=== PATIENT | female | born 1955 | race Caucasian/White ===

== ENCOUNTER 2016-12-09 17:09 | Emergency (ER) | payer OTHER ==
[~2016-12-09] VITALS: Wt 82.5 kg
[2016-12-09 20:19] LABS: ADD SCAN DIFF NO
[2016-12-09 20:25] LABS: BASOPHILS % 0.4 % (0.0-2.0); EOSINOPHILS # 0.1 10^3/ul (0.0-0.5); EOSINOPHILS % 2.4 % (0.0-7.0); HEMATOCRIT 28.9 % (37.0-47.0); HEMOGLOBIN 8.9 g/dl (12.0-16.0); LYMPHOCYTES # 1.4 10^3/ul (0.8-2.9); MEAN CORPUSCULAR HEMOGLOBIN 28.1 pg (29.0-33.0); MEAN CORPUSCULAR HGB CONC 30.8 g/dl (32.0-37.0); MEAN CORPUSCULAR VOLUME 91.2 fl (82.0-101.0); MONOCYTE # 0.5 10^3/ul (0.3-0.9); MONOCYTES % 9.9 % (0.0-11.0); NEUTROPHILS % 58.7 % (39.0-77.0); PLATELET COUNT 182 10^3/UL (140-415); RED BLOOD COUNT 3.17 10^6/ul (4.20-5.40); RED CELL DISTRIBUTION WIDTH 17.7 % (11.5-14.5)
[2016-12-09] MEDS ORDERED: KETOROLAC 15 MG INJ IV STA (20:27)
[2016-12-09 20:44] LABS: ALBUMIN 4.1 g/dl (3.3-4.9); ALBUMIN/GLOBULIN RATIO 1.24; BILIRUBIN,INDIRECT 0.1 mg/dl (0-1.1); BILIRUBIN,TOTAL 0.1 mg/dl (0.2-1.3); CALCIUM 9.4 mg/dl (8.4-10.2); CREATININE 1.01 mg/dl (0.44-1.00); POTASSIUM 3.5 mmol/L (3.5-5.1); TOTAL PROTEIN 7.4 g/dl (6.1-8.1)
[2016-12-09 20:49] LABS: ADD UMIC YES; UR ASCORBIC ACID NEGATIVE (NEGATIVE); UR BACTERIA FEW /HPF (NONE SEEN); UR BILIRUBIN (Dip) NEGATIVE (NEGATIVE); UR BLOOD (Dip) 1+ mg/dL (NEGATIVE); UR CLARITY SLIGHTLY CLOUDY (CLEAR); UR COLOR STRAW (YELLOW); UR GLUCOSE (Dip) NEGATIVE (NEGATIVE); UR KETONES (Dip) NEGATIVE (NEGATIVE); UR LEUKOCYTE ESTERASE (Dip) 3+ Leu/ul (NEGATIVE); UR NITRITE (Dip) NEGATIVE (NEGATIVE); UR RBC 6 /HPF (0-5); UR SPECIFIC GRAVITY (Dip) 1.002 (1.003-1.030); UR SQUAMOUS EPITHELIAL CELL FEW /HPF (FEW); UR TOTAL PROTEIN (Dip) NEGATIVE (NEGATIVE); UR UROBILINOGEN (Dip) NEGATIVE (NEGATIVE)
[2016-12-09] MEDS ORDERED: IOHEXOL 300MG/ML 150 ML BTL ONE (21:10)
[2016-12-09] MEDS ORDERED: SOD CHLORIDE 0.9% 100 ML ONE (21:10)
[2016-12-09] MEDS ORDERED: CEFTRIAXONE 1 GM/50 ML (PMX) 50 ML IVPB ONE (22:00)
--- NOTE | 2016-12-09 22:23 | RADRPT ---
PROCEDURE: CT Abdomen and Pelvis without contrast. CLINICAL INDICATION: Flank pain. Ureteral stent evaluation. TECHNIQUE: CT scan of the abdomen and pelvis without contrast was performed on a multidetector hig h-resolution CT scanner. The patient was scanned without intravenous contrast. Coronal and sagittal reformatted images were obtained from the axial source images. Images were reviewed on a high-resol [employer] PACS workstation. The total exam CTDI equals 20.2 mGy and the total exam DLP equals 1218.04 mG y-cm. One or more of the following dose reduction techniques were used: Automated exposure control. Adjustment of the mA and/or kV according to patient size. Use of iterative reconstruction technique. COMPARISON: None FINDINGS: CT abdomen: The lung bases are clear. The heart size is normal, without pericardial thickening or effusion. The liver is normal in size and density. There is approximately 2.2 cm indeterminate hypodense lesi on in the left hepatic lobe. The spleen is normal in size and homogeneous in density. The stomach is partially collapsed, but is grossly unremarkable. The pancreas as visualized is normal. The gal lbladder is unremarkable. There is no evidence for biliary dilatation. The adrenal glands are symme tric and normal. There is an atrophic right kidney. Right-sided nephroureteral stent is in place with proximal pigta il coils in the right UPJ with distal pigtail in the urinary bladder. There is no hydronephrosis. There is mild right perinephric fatty stranding. The left kidney is normal in size with no hydronep hrosis. There is approximately 6 cm exophytic cortical cyst in the mid pole left kidney. There is no urolithiasis. The aorta is of normal caliber. There is no retroperitoneal lymphadenopathy. The randell hepatis thais on is clear. The bowel and mesentery, as visualized, are equally unremarkable. There is a small hia bethany hernia. CT pelvis: The small bowel loops situated within the pelvis are unremarkable. The uterus is absent. The pelvi c sidewalls and inguinal regions are clear. The sigmoid colon and rectum are unremarkable. No mass , lymphadenopathy, or free fluid is seen. No acute inflammation is seen. There is age indeterminat e mild compression fracture of T12. There is no retropulsion. No osteolytic or osteoblastic lesion is detected. IMPRESSION: 1. Right nephroureteral stent with proximal pigtail coils in the right UPJ and distal pigtail in the urinary bladder. No right hydronephrosis. Mild periureteral fatty stranding which could be relate d to existing stent or UTI. 2. Atrophic right kidney. No urolithiasis. 3. Normal size left kidney with no hydronephrosis. Large left renal cyst. 4. Indeterminate approximately 2.2 cm hypodense lesion in the left hepatic lobe. This could represe nt a cyst. Recommend ultrasound for confirmation. 5. Small hiatal hernia. RPTAT: HHO .Matteo Adam MD, Date Time Electronically viewed and signed by .Matteo Adam MD, on 12/09/2016 22:23 .O/
--- NOTE | 2016-12-09 22:33 | ERD ---
ER Documentation Chief Complaint Date/Time DATE: 12/09/16 TIME: 22:29 Chief Complaint lower abd pain, dysuria, states stent kidney needs to be removed HPI This is a 61-year-old female who presents to the emergency room with her sister for evaluation of lower abdominal pain, painful urination, and evaluation of a ureteral stent. According to the patient's sister this patient had a ureteral stent placed 3 weeks ago at a hospital near [place]. This patient has not had removal of the stent and called the urologist to schedule removal of the stent however the urologist was refusing to remove the stent due to insurance reasons. This patient was visiting her sister who lives in [place] and the patient was brought to the ER for evaluation of the stent. The patient denies any fevers or chills. ROS All systems reviewed and are negative except as per history of present illness. Allergies Allergies: Coded Allergies: Penicillins (Verified Allergy, Intermediate, 12/09/16) PMhx/Soc History of Surgery: Yes (bi-lateral mastectomy, hysterectomy, kidney stebnt placement) Hx Miscellaneous Medical Probl: Yes (breast CA, ovarian CA) Hx Substance Use: No Hx Tobacco Use: No Smoking Status: Never smoker Physical Exam Vitals Vital Signs Date Time Temp Pulse Resp B/P Pulse Ox O2 Delivery O2 Flow Rate FiO2 12/09/16 17:26 98.8 95 20 115/62 96 Physical Exam INITIAL VITAL SIGNS: Reviewed by me GENERAL: The patient is well developed and appropriate for usual state of health in no apparent distress, pleasant affect HEENT: Pupils equal, round, and reactive to light. EOMI. There is no scleral icterus. NECK: C-spine is soft and supple, there is no meningismus. There is no cervical lymphadenopathy. LUNGS: Clear to auscultation bilaterally. There are no rales, wheezes or rhonchi. HEART: Regular rate and rhythm, no murmurs, clicks, rubs or gallops. ABDOMEN: Soft, non-tender, non-distended. There are bowel sounds in all four quadrants. No rebound or guarding. EXTREMITIES: There is no peripheral cyanosis or edema. No focal swelling or erythema. NEUROLOGICAL: The patient moves all four extremities with 5/5 strength. Cranial nerves II - XII are intact. Normal gait. Alert and oriented SKIN: There is no apparent rash or petechiae. HEME/LYMPHATIC: There is no evidence of excessive bruising or lymphedema. PSYCHIATRIC: The patient does not appear anxious or depressed. Result Diagram: 12/09/16 2017 12/09/162016 Results 24 hrs Laboratory Tests Test 12/09/16 20:17 White Blood Count 5.010^3/ul Red Blood Count 3.1710^6/ul Hemoglobin 8.9g/dl Hematocrit 28.9% Mean Corpuscular Volume 91.2fl Mean Corpuscular Hemoglobin 28.1pg Mean Corpuscular Hemoglobin Concent 30.8g/dl Red Cell Distribution Width 17.7% Platelet Count 47068^3/UL Mean Platelet Volume 9.0fl Neutrophils % 58.7% Lymphocytes % 28.0% Monocytes % 9.9% Eosinophils % 2.4% Basophils % 0.4% Neutrophils # 3.010^3/ul Lymphocytes # 1.410^3/ul Monocytes # 0.510^3/ul Eosinophils # 0.110^3/ul Basophils # 0.010^3/ul Nucleated Red Blood Cells # 0.010^3/ul Urine Color STRAW Urine Clarity SLIGHTLY CLOUDY Urine pH 6.0 Urine Specific [place] 1.002 Urine Ketones NEGATIVEmg/dL Urine Nitrite NEGATIVEmg/dL Urine Bilirubin NEGATIVEmg/dL Urine Urobilinogen NEGATIVEmg/dL Urine Leukocyte Esterase 3+Milton/ul Urine Microscopic RBC 6/HPF Urine Microscopic WBC 13/HPF Urine Squamous Epithelial Cells FEW/HPF Urine Bacteria FEW/HPF Urine Hemoglobin 1+mg/dL Urine Glucose NEGATIVEmg/dL Urine Total Protein NEGATIVEmg/dl Sodium Level 144mmol/L Potassium Level 3.5mmol/L Chloride Level 102mmol/L Carbon Dioxide Level 27mmol/L Anion Gap 19 Blood Urea Nitrogen 11mg/dl Creatinine 1.01mg/dl Glucose Level 85mg/dl Calcium Level 9.4mg/dl Total Bilirubin 0.1mg/dl Direct Bilirubin 0.00mg/dl Indirect Bilirubin 0.1mg/dl Aspartate Amino Transf (AST/SGOT) 22IU/L Alanine Aminotransferase (ALT/SGPT) 26IU/L Alkaline Phosphatase 87IU/L Total Protein 7.4g/dl Albumin 4.1g/dl Globulin 3.30g/dl Albumin/Globulin Ratio 1.24 Lipase 62U/L Current Medications Medications (Trade) Dose Ordered Sig/Starla Route PRN Reason Start Time Stop Time Status Last Admin Dose Admin Ketorolac Tromethamine 15 mg 15 mg ONCE STAT IV 12/09/16 20:27 12/09/16 20:28 DC 12/09/16 20:42 Ceftriaxone Sodium (Rocephin) 50 ml @ 100 mls/hr ONCE ONCE IVPB 12/09/16 22:00 12/09/16 22:29 12/09/16 21:56 Procedures/MDM CT abdomen pelvis without: 1. Right nephroureteral stent with proximal pigtail coils in the right UPJ and distal pigtail in the urinary bladder. No right hydronephrosis. Mild periureteral fatty stranding which could be related to existing stent or UTI. 2. Atrophic right kidney. No urolithiasis. 3. Normal size left kidney with no hydronephrosis. Large left renal cyst. 4. Indeterminate approximately 2.2 cm hypodense lesion in the left hepatic lobe. This could represent a cyst. Recommend ultrasound for confirmation. 5. Small hiatal hernia. This 61-year-old female presents to the emergency room for evaluation of flank pain, and evaluation of ureteral stent that was placed. This patient stated that she underwent a lithotripsy and her urologist is now refusing to remove the stent due to the fact that she does not have "the right insurance". I did obtain lab work on this patient which does show a mild anemia a creatinine slightly greater than 1. This patient does have urinary tract infection. The patient was given Rocephin in the emergency room. The patient did have a CT which does not show any massive obstruction. I advised the patient and the patient's sister the need to follow-up with the patient's urologist to have removal of the stent. I told him I will give the referral for 2 different neurologist in our area just in case they are this patient's network for insurance. This patient is not on toxic appearing, afebrile, however I did advise him that if this patient would continue to have pain were to develop a fever things to return immediately to the emergency room for admission. The patient's sister states that tomorrow they will contact the urologist in either get a referral for a urologist was in network or will have the stent removed. This patient was given a copy of her lab work, a disc of the CAT scan was provided for the patient including the radiology read. Departure Diagnosis: Primary Impression: Acute cystitis Additional Impressions: Normocytic anemia Dysuria Condition: Stable ADDY WRIGHT DO Dec 09, 2016 22:33
[2016-12-09] MEDS ORDERED: CIPR500T4 PO (22:34)
[2016-12-09] MEDS ORDERED: PHEN-537 PO (22:34)
[2016-12-09] MEDS ORDERED: HYDR-906 PO (22:34)
[2016-12-09 23:35] VITALS: BP 111/75; PULSE 76; RESP 20; TEMP 97.9
== END 2016-12-09 23:47 | disposition home or self-care (01) ==
LOC: E/R 17:09
DX: N30.00 Acute cystitis without hematuria (principal); D64.9 Anemia, unspecified; R30.0 Dysuria; Z85.3 Personal history of malignant neoplasm of breast; Z85.43 Personal history of malignant neoplasm of ovary
CPT/HCPCS: 36415; 74176; 80053; 81001; 83690; 85025; 96374; 96375; 99285; J0696; J1885; Q9967

== ENCOUNTER 2018-07-28 12:22 | Inpatient (IN) | payer OTHER ==
[~2018-07-28] VITALS: Ht 162.6 cm; Wt 96.8 kg
[~2018-07-28 12:22] MED LIST: CIPR500T4 PO; HYDR-4011 PO; PHEN-537 PO
[2018-07-28] MEDS ORDERED: morphine 4 MG/ML VIAL IV STA (12:40)
[2018-07-28] MEDS ORDERED: ONDANSETRON 4 MG INJ IV STA (12:40)
[2018-07-28] MEDS ORDERED: SOD CHLORIDE 0.9% 1,000 ML IV STA (12:44)
[2018-07-28] MEDS ORDERED: ARIP10TA12 PO (14:18)
[2018-07-28] MEDS ORDERED: ESCI20TA PO (14:19)
[2018-07-28] MEDS ORDERED: TRA100 PO (14:20)
[2018-07-28] MEDS ORDERED: LIDOCAINE 2% JELLY 30 ML TOP STA (14:55)
[2018-07-28] MEDS ORDERED: LIDOCAINE 2% JEL.PF.APP 5 ML UROJET SYRINGE TOP STA (15:01)
--- NOTE | 2018-07-28 15:14 | ERD ---
ER Documentation Chief Complaint Chief Complaint ABD AND BACK PAIN WITH DIZZINESS AND WEAKNESS X 1 WEEK HPI Patient is a 63-year-old female with ovarian cancer who presents with abdominal pain. She got chemotherapy yesterday. She has had lower abdominal pain which she describes as a constant pressure. She also had 2 episodes of vomiting this morning. She does report having a bowel movement this morning. She was brought in by ambulance. She has had the symptoms for the past 1 week. ROS All systems reviewed and are negative except as per history of present illness. Medications Home Meds Reported Medications Trazodone Hcl* (Trazodone Hcl*) Unknown Strength Tablet, 1 TAB PO QHS, #30 TAB 07/28/18 Escitalopram Oxalate* (Lexapro*) 20 Mg Tablet, 20 MG PO DAILY, #30 TAB 07/28/18 Aripiprazole* (Abilify*) 10 Mg Tablet, 10 MG PO DAILY, #30 TAB 07/28/18 Discontinued Scripts Hydrocodone/Acetaminophen ([place] 5-325 Tablet) 1 Each Tablet, 1 TAB PO Q6H PRN for PAIN, #7 TAB Prov:ADDY WRIGHT DO 12/09/16 Phenazopyridine Hcl* (Pyridium*) 100 Mg Tab, 100 MG PO TID PRN for URINARY PAIN, #8 TAB Prov:ADDY WRIGHT DO 12/09/16 Ciprofloxacin Hcl* (Ciprofloxacin Hcl*) 500 Mg Tablet, 500 MG PO BID for 14 Days, TAB Prov:ADDY WRIGHT DO 12/09/16 Allergies Allergies: Coded Allergies: Penicillins (Verified Allergy, Intermediate, 07/28/18) PMhx/Soc History of Surgery: Yes (bi-lateral mastectomy, hysterectomy, kidney stebnt placement) Hx Miscellaneous Medical Probl: Yes (breast CA, ovarian CA) Hx Alcohol Use: Yes (quit) Hx Substance Use: No Hx Tobacco Use: No Smoking Status: Never smoker FmHx Family History: diabetes Physical Exam Vitals Vital Signs Date Temp Pulse Resp B/P (MAP) Pulse Ox O2 O2 Flow FiO2 Time Delivery Rate 07/28/18 98.0 106 16 129/87 98 12:29 (101) Physical Exam Const: No acute distress Head: Atraumatic Eyes: Normal Conjunctiva ENT: Normal External Ears, Nose and Mouth. Neck: Full range of motion. No meningismus. Resp: Clear to auscultation bilaterally Cardio: Regular rate and rhythm, no murmurs Abd: Distended abdomen with diffuse tenderness to palpation without rebound or guarding Skin: No petechiae or rashes Back: No midline or flank tenderness Ext: No cyanosis, or edema Neur: Awake and alert Psych: Normal Mood and Affect Result Diagram: 07/28/18 1252 07/28/18 1252 Results 24 hrs Laboratory Tests Test 07/28/18 12:52 White Blood Count 6.6 10^3/ul Red Blood Count 4.70 10^6/ul Hemoglobin 13.4 g/dl Hematocrit 42.1 % Mean Corpuscular Volume 89.6 fl Mean Corpuscular Hemoglobin 28.5 pg Mean Corpuscular Hemoglobin Concent 31.8 g/dl Red Cell Distribution Width 16.6 % Platelet Count 191 10^3/UL Mean Platelet Volume 8.8 fl Immature Granulocytes % 0.300 % Neutrophils % 75.9 % Lymphocytes % 15.5 % Monocytes % 6.8 % Eosinophils % 0.9 % Basophils % 0.6 % Nucleated Red Blood Cells % 0.0 /100WBC Immature Granulocytes # 0.020 10^3/ul Neutrophils # 5.0 10^3/ul Lymphocytes # 1.0 10^3/ul Monocytes # 0.5 10^3/ul Eosinophils # 0.1 10^3/ul Basophils # 0.0 10^3/ul Nucleated Red Blood Cells # 0.0 10^3/ul Sodium Level 144 mmol/L Potassium Level 4.6 mmol/L Chloride Level 101 mmol/L Carbon Dioxide Level 28 mmol/L Anion Gap 15 Blood Urea Nitrogen 30 mg/dl Creatinine 2.01 mg/dl Est Glomerular Filtrat Rate mL/min 25 mL/min Glucose Level 146 mg/dl Calcium Level 10.5 mg/dl Total Bilirubin 0.6 mg/dl Direct Bilirubin 0.00 mg/dl Indirect Bilirubin 0.6 mg/dl Aspartate Amino Transf (AST/SGOT) 35 IU/L Alanine Aminotransferase (ALT/SGPT) 18 IU/L Alkaline Phosphatase 79 IU/L Total Protein 7.7 g/dl Albumin 4.5 g/dl Globulin 3.20 g/dl Albumin/Globulin Ratio 1.40 Lipase 133 U/L Current Medications Medications Dose Sig/Starla Start Time Status Last (Trade) Ordered Route PRN Stop Time Admin Dose Reason Admin Morphine 4 mg ONCE STAT 07/28/18 DC 07/28/18 Sulfate IV 12:40 07/28/18 13:01 (morphine) 12:41 Ondansetron 4 mg ONCE STAT 07/28/18 DC 07/28/18 HCl (Zofran IV 12:40 07/28/18 13:00 Inj) 12:41 Sodium 1,000 ml @ Q1H STAT 07/28/18 DC 07/28/18 Chloride 1,000 mls/hr IV 12:44 07/28/18 13:01 13:43 Lidocaine 1 applic ONCE STAT 07/28/18 DC (Xylocaine) TOP 14:55 07/28/18 14:57 Lidocaine 1 ml ONCE STAT 07/28/18 DC 07/28/18 HCl TOP 15:01 07/28/18 15:06 (Lidocaine 15:02 Urojet) Ondansetron 4 mg BRIDGE ORDER 07/28/18 HCl (Zofran PRN IV 15:30 07/29/18 Inj) NAUSEA/VOMITI 15:29 NG 650 mg ER BRIDGE 07/28/18 Acetaminophen PRN PO 15:30 07/29/18 (Tylenol .MILD PAIN 15:29 Tab) 1-3 OR TEMP Procedures/MDM CT abdomen pelvis shows small bowel obstruction per radiology. Patient is a 63-year-old female who presents with small bowel obstruction. She was also found to have acute renal failure with a creatinine of 2.0 and her last normal creatinine was 1.0. She does not have any history of renal failure that she knows about. The patient will be admitted to the care of the panel team to Dr. Rosa. She had an NG tube placed in the emergency department. She will be given fluids as well as morphine and Zofran. Departure Diagnosis: Primary Impression: SBO (small bowel obstruction) Additional Impressions: ARF (acute renal failure) Acute renal failure type: unspecified Qualified Codes: N17.9 - Acute kidney failure, unspecified Abdominal pain Abdominal location: generalized Qualified Codes: R10.84 - Generalized abdominal pain Condition: DANA Childress MD Jul 28, 2018 15:14
[2018-07-28] MEDS ORDERED: ONDANSETRON 4 MG INJ IV PRN ×2 (15:30→16:30)
[2018-07-28] MEDS ORDERED: ACETAMINOPHEN 325 MG TAB PO PRN (15:30)
[2018-07-28 16:08] VITALS: BP 146/69; PULSE 75; RESP 18
[2018-07-28] MEDS ORDERED: NACL 0.9% 3 ML SYG IV SCH (16:30)
--- NOTE | 2018-07-28 16:48 | HP ---
Date/Time of Note Date/Time of Note DATE: 07/28/18 TIME: 16:31 Assessment/Plan VTE Prophylaxis SCD applied (from Nsg): Yes Pharmacological prophylaxis: LMWH Lines/Catheters IV Catheter Type (from Nrsg): Saline Lock Assessment/Plan Assessment/Plan 1. Abdominal pain - CT scan performed with high suspicion for SBO - Patient had BM this am so low suspicion for complete SBO. NGT to low continuous suction - Monitor for decrease in output and improvement in abdominal discomfort. Once improves will order SBFT - given suspicion for ileus, will add reglan - Pain control but will limit narcotics given decreases Gi motility - IVF on board and will keep NPO 2. NIKUNJ - most likely secondary to dehydration - will avoid nephrotoxic agents - monitor for improvement 3. Nausea with Vomiting - secondary to SBO vs partial SBO vs Ileus - Zofran PRN - supportive care 4. Ovarian Ca - followed by Oncologist at [facility]. Last chemo was yesterday 5. Breast Ca 2005 - stable 6. Mood disorder - continue home medications 7. Diet - NPO 8. Gi ppx - PPI 9. Disposition - Admit to med/surg for treatment of SBO and NIKUNJ Result Diagram: 07/28/18 1252 07/28/18 1252 Results 24hrs Laboratory Tests Test 07/28/18 12:52 White Blood Count 6.6 # Red Blood Count 4.70 # Hemoglobin 13.4 # Hematocrit 42.1 # Mean Corpuscular Volume 89.6 Mean Corpuscular Hemoglobin 28.5 L Mean Corpuscular Hemoglobin Concent 31.8 L Red Cell Distribution Width 16.6 H Platelet Count 191 Mean Platelet Volume 8.8 Immature Granulocytes % 0.300 Neutrophils % 75.9 Lymphocytes % 15.5 Monocytes % 6.8 Eosinophils % 0.9 Basophils % 0.6 Nucleated Red Blood Cells % 0.0 Immature Granulocytes # 0.020 Neutrophils # 5.0 Lymphocytes # 1.0 Monocytes # 0.5 Eosinophils # 0.1 Basophils # 0.0 Nucleated Red Blood Cells # 0.0 Sodium Level 144 Potassium Level 4.6 Chloride Level 101 Carbon Dioxide Level 28 Anion Gap 15 H Blood Urea Nitrogen 30 H Creatinine 2.01 H Est Glomerular Filtrat Rate mL/min 25 L Glucose Level 146 Calcium Level 10.5 H Total Bilirubin 0.6 Direct Bilirubin 0.00 Indirect Bilirubin 0.6 Aspartate Amino Transf (AST/SGOT) 35 Alanine Aminotransferase (ALT/SGPT) 18 Alkaline Phosphatase 79 Total Protein 7.7 Albumin 4.5 Globulin 3.20 Albumin/Globulin Ratio 1.40 Lipase 133 HPI/ROS Admit Date/Time Admit Date/Time Jul 28, 2018 at 15:02 Hx of Present Illness 63 yo F with PMH with breast cancer and ovarian cancer presented to ED with worsening abdominal pain, chills, nausea, and vomiting since last night. Patient describes abdominal discomfort as pressure like, moderate in natures, nothing makes it better or worse. nonradiating. She does admit to last Bm this am with no issues. She had chemotherapy yesterday and was recommended to go to urgent care due to her abdominal discomfort but wanted to reach out to her PCP first prior to going to the hospital. In the ED patient was found with NIKUNJ and CT results noted with concern for SBO. Patient denies any chest pain, shortness of breath, headache, dizziness, fevers, constipation, diarrhea, or urinary issues. ROS All 12 systems reviewed and pertinent positives as per HPI. All others negative. Constitutional: chills, fatigue, nausea Eyes: No discharge ENT: No congestion Respiratory: No cough, No shortness of breath, No sputum, No wheezing Cardiovascular: No chest pain, No edema, No lightheadedness, No palpitations Gastrointestinal: pain, nausea, passing stool, vomiting; No constipation, No diarrhea Genitourinary: no complaints Musculoskeletal: no complaints Skin: No laceration, No rash Neurologic: No confusion, No dizziness, No focal-weakness, No syncope Endocrine: no complaints Lymphatic: no complaints Psychological: nl mood/affect Immunologic: no complaints PMH/Family/Social Past Medical History Medical History: other (ovarian and breast cancer) Coded Allergies: Penicillins (Verified Allergy, Intermediate, 07/28/18) Past Surgical History Past Surgical Hx: other (bilateral mastectomy, hysterectomy) Family History Significant Family History: no pertinent family hx Social History Alcohol Use: none Smoking Status: Never smoker Drug Use: none Exam/Review of Systems Vital Signs Vitals Vital Signs Date Temp Pulse Resp B/P (MAP) Pulse Ox O2 O2 Flow FiO2 Time Delivery Rate 07/28/18 98.6 75 18 146/69 92 Room Air 16:08 (94) Exam Exam General: Patient is laying in bed and answers questions. no acute distress Head: Normocephalic atraumatic, NG tube in place Eyes: EOMI, pupils reactive to light Neck: Supple, nontender, midline Chest: nontender Respiratory: Clear to auscultation bilaterally. no wheezing or rhonchi Cardiovascular: S1, S2, regular rate and rhythm, no obvious murmurs Gastrointestinal: soft, mildly tender, distended, bowel sounds hypoactive. no rebound or guarding Neurological: Moves all extremities spontaneously. no focal deficits. motor and sensory intact Skin: No new skin lesions Additional Comments Home medications reviewed PROCEDURE: CT ABDOMEN AND PELVIS WITHOUT CONTRAST. CLINICAL INDICATION: Abdominal pain TECHNIQUE: CT scan of the abdomen and pelvis without contrast was performed on a multidetector high-resolution CT scanner. The patient was scanned without intravenous contrast. Coronal and sagittal reformatted images were obtained from the axial source images. Images were reviewed on a high-resolution PACS workstation. The total exam CTDI equals 21.4 mGy and the total exam DLP equals 1283 mGy-cm. One or more of the following dose reduction techniques were used: Automated exposure control. Adjustment of the mA and/or kV according to patient size. Use of iterative reconstruction technique. DICOM images are available COMPARISON: None FINDINGS: CT abdomen: The lung bases are clear. The heart size is within normal limits. There is no significant pericardial effusion. Hepatic morphology is within limits. There is mild perihepatic fluid. Gallbladder appears to be within normal limits. No evidence of intrahepatic or extrahepatic dilatation. There is a small hepatic cyst. The spleen and pancreas are within limits. Both adrenal glands are within normal limits. Both kidneys are in anatomic position. The right kidney is atrophic. The left kidney is identified, containing a large left-sided renal cyst measuring up to 6.8 cm. No gross renal/ureteric calculi. No obstructive uropathy. The visualized GI tract demonstrates thickening of the felton of the stomach. There are multiple dilated loops of fluid-filled small bowel. There appears to be a transition point within the right lower quadrant. There is collapse of the terminal ileum. Stool filled loops of large bowel suggestive of constipation. The appendix is not identified. Status post appendectomy. Mild atherosclerotic calcification aorta is identified. There is no significant retroperitoneal lymphadenopathy. CT pelvis: The bladder is within limits. The uterus is not visualized. The rectosigmoid colon demonstrates stool. No significant pelvic lymphadenopathy. Status post hysterectomy. No evidence of significant pelvic free fluid. The visualized osseous structures demonstrates multilevel degenerative disc disease of the spine. IMPRESSION: 1. MULTIPLE DILATED FLUID-FILLED LOOPS OF SMALL BOWEL WITH TRANSITION POINT WITHIN RIGHT LOWER QUADRANT AND COLLAPSE OF THE TERMINAL ILEUM. FINDINGS ARE HIGHLY CONCERNING FOR SMALL BOWEL OBSTRUCTION. RECOMMEND FOLLOW-UP SMALL BOWEL SERIES. 2. Atrophic right kidney. Left upper pole renal cyst measuring 6.8 cm. No evidence of obstructive uropathy within both kidneys. 3. Mild perihepatic ascites. Small hepatic cyst. 4. Thickening of the felton of the stomach, cannot exclude underlying gastritis. 5. Status post hysterectomy. 6. No evidence of free air. No gross focal fluid collections. RPTAT: AAPP Physician Obed Date Time Electronically viewed and signed by Physician Obed on 07/28/2018 14:10 PROCEDURE: XR Chest. CLINICAL INDICATION: chest pain TECHNIQUE: Single frontal view of the chest was obtained COMPARISON: 11/21/17 , 07/28/18 FINDINGS: The heart and mediastinum are within normal limits. There is a nasogastric tube within the stomach. There is a right-sided chest wall port in place. The lungs are clear. There is no pleural effusion or pneumothorax. RPTAT: AA IMPRESSION: Nasogastric tube within the stomach. .Alf Rowland MD, MD Date Time Electronically viewed and signed by .Alf Rowland MD, MD on 07/28/2018 15:55 ROD SHETH MD Jul 28, 2018 16:42
[2018-07-28 17:40] VITALS: Ht 162.6 cm; Wt 96.8 kg
[2018-07-28] MEDS: METOCLOPRAMIDE 10 MG INJ IV SCH (19:23)
[2018-07-28] MEDS: PANTOPRAZOLE 40 MG INJ IV SCH (19:23)
[2018-07-28] MEDS: ENOXAPARIN 30 MG/0.3 ML SYG SC SCH (19:24)
[2018-07-28 19:35] VITALS: BP 144/74; PULSE 88; RESP 18
[2018-07-28] MEDS: DEXTROSE 5%-0.45% NACL 1,000 ML IV SCH (19:39)
[2018-07-28] MEDS: ESCITALOPRAM 10 MG TAB PO SCH (21:40)
[2018-07-28] MEDS: traZODone 50 MG TAB PO SCH (21:40)
[2018-07-28] MEDS: ARIPIPRAZOLE 10 MG TAB PO SCH (21:40)
[2018-07-28] MEDS: morphine 2 MG INJ IV PRN (21:47)
[2018-07-29] MEDS: METOCLOPRAMIDE 10 MG INJ IV SCH ×5 (00:13→23:51)
[2018-07-29 01:38] VITALS: BP 144/66; PULSE 95; RESP 18
[2018-07-29] MEDS: DEXTROSE 5%-0.45% NACL 1,000 ML IV SCH ×4 (03:00→23:00)
[2018-07-29] MEDS: morphine 2 MG INJ IV PRN ×2 (06:03→12:56)
[2018-07-29] MEDS: PANTOPRAZOLE 40 MG INJ IV SCH (06:03)
[2018-07-29 07:48] VITALS: BP 131/65; PULSE 92; RESP 18
[2018-07-29] MEDS: ARIPIPRAZOLE 10 MG TAB PO SCH ×2 (08:44→20:47)
[2018-07-29] MEDS ORDERED: ESCITALOPRAM 10 MG TAB PO SCH (09:00)
[2018-07-29] MEDS ORDERED: ARIPIPRAZOLE 10 MG TAB PO SCH (09:00)
--- NOTE | 2018-07-29 09:02 | PN ---
Date/Time of Note Date/Time of Note DATE: 07/29/18 TIME: 09:02 Assessment/Plan VTE Prophylaxis Risk score (from Ns)>0 risk: 6 SCD applied (from Nsg): Yes Pharmacological prophylaxis: other Lines/Catheters IV Catheter Type (from Nrsg): Peripheral IV Urinary Cath still in place: No Assessment/Plan Assessment/Plan 1. Abdominal pain - Continue with decompression via NG tube - No Bm or passing gas. once abdominal discomfort improves and passing gas, will check SBFT - CT scan performed with high suspicion for SBO - Pain control but will limit narcotics given decreases Gi motility - IVF on board and will keep NPO 2. NIKUNJ- improving - most likely secondary to dehydration - will avoid nephrotoxic agents - monitor for improvement 3. Nausea with Vomiting- resolving - secondary to SBO vs partial SBO vs Ileus - Zofran PRN - supportive care 4. Ovarian Ca - [facility]. Last chemo was yesterday 5. Breast Ca 2005 - stable 6. Mood disorder - continue home medications 7. Disposition - Continue decompressing abdomen via NG tube Result Diagram: 07/29/187 07/29/187 Results 24hrs Laboratory Tests Test 07/28/18 12:52 07/29/18 04:27 White Blood Count 6.6 # 5.2 # Red Blood Count 4.70 # 4.01 L Hemoglobin 13.4 # 11.6 L Hematocrit 42.1 # 37.2 Mean Corpuscular Volume 89.6 92.8 Mean Corpuscular Hemoglobin 28.5 L 28.9 L Mean Corpuscular Hemoglobin Concent 31.8 L 31.2 L Red Cell Distribution Width 16.6 H 17.0 H Platelet Count 191 149 # Mean Platelet Volume 8.8 9.5 Immature Granulocytes % 0.300 0.200 Neutrophils % 75.9 62.3 Lymphocytes % 15.5 19.6 Monocytes % 6.8 15.0 H Eosinophils % 0.9 2.3 Basophils % 0.6 0.6 Nucleated Red Blood Cells % 0.0 0.0 Immature Granulocytes # 0.020 0.010 Neutrophils # 5.0 3.3 Lymphocytes # 1.0 1.0 Monocytes # 0.5 0.8 Eosinophils # 0.1 0.1 Basophils # 0.0 0.0 Nucleated Red Blood Cells # 0.0 0.0 Sodium Level 144 141 Potassium Level 4.6 4.4 Chloride Level 101 103 Carbon Dioxide Level 28 28 Anion Gap 15 H 10 # Blood Urea Nitrogen 30 H 29 H Creatinine 2.01 H 1.72 H Est Glomerular Filtrat Rate mL/min 25 L Glucose Level 146 139 Calcium Level 10.5 H 8.6 Total Bilirubin 0.6 Direct Bilirubin 0.00 Indirect Bilirubin 0.6 Aspartate Amino Transf (AST/SGOT) 35 Alanine Aminotransferase (ALT/SGPT) 18 Alkaline Phosphatase 79 Total Protein 7.7 Albumin 4.5 3.5 # Globulin 3.20 Albumin/Globulin Ratio 1.40 Lipase 133 Phosphorus Level 5.0 H Magnesium Level 1.8 Subjective 24 Hr Interval Summary Free Text/Dictation Patient still with abdominal distension and discomfort. Still with NG output but taking in ice chips so majority of output is water. Denies any gas or BM. Exam/Review of Systems Exam Vitals Vital Signs Date Temp Pulse Resp B/P (MAP) Pulse Ox O2 O2 Flow FiO2 Time Delivery Rate 07/29/18 98.9 92 18 131/65 92 Room Air 07:48 (87) Intake and Output 07/28/18 07/28/18 07/29/18 1515:00 23:00 07:00 IntakeIntake Total 1000 ml OutputOutput Total 650 ml BalanceBalance 350 ml Exam General: Patient is laying in bed and answers questions. no acute distress Head: Normocephalic atraumatic, NG tube in place Chest: nontender Respiratory: Clear to auscultation bilaterally. no wheezing or rhonchi Cardiovascular: S1, S2, regular rate and rhythm, no obvious murmurs Gastrointestinal: soft, nontender, distended, bowel sounds hypoactive. no rebound or guarding Skin: No new skin lesions Results Results 24hrs Laboratory Tests Test 07/28/18 12:52 07/29/18 04:27 White Blood Count 6.6 # 5.2 # Red Blood Count 4.70 # 4.01 L Hemoglobin 13.4 # 11.6 L Hematocrit 42.1 # 37.2 Mean Corpuscular Volume 89.6 92.8 Mean Corpuscular Hemoglobin 28.5 L 28.9 L Mean Corpuscular Hemoglobin Concent 31.8 L 31.2 L Red Cell Distribution Width 16.6 H 17.0 H Platelet Count 191 149 # Mean Platelet Volume 8.8 9.5 Immature Granulocytes % 0.300 0.200 Neutrophils % 75.9 62.3 Lymphocytes % 15.5 19.6 Monocytes % 6.8 15.0 H Eosinophils % 0.9 2.3 Basophils % 0.6 0.6 Nucleated Red Blood Cells % 0.0 0.0 Immature Granulocytes # 0.020 0.010 Neutrophils # 5.0 3.3 Lymphocytes # 1.0 1.0 Monocytes # 0.5 0.8 Eosinophils # 0.1 0.1 Basophils # 0.0 0.0 Nucleated Red Blood Cells # 0.0 0.0 Sodium Level 144 141 Potassium Level 4.6 4.4 Chloride Level 101 103 Carbon Dioxide Level 28 28 Anion Gap 15 H 10 # Blood Urea Nitrogen 30 H 29 H Creatinine 2.01 H 1.72 H Est Glomerular Filtrat Rate mL/min 25 L Glucose Level 146 139 Calcium Level 10.5 H 8.6 Total Bilirubin 0.6 Direct Bilirubin 0.00 Indirect Bilirubin 0.6 Aspartate Amino Transf (AST/SGOT) 35 Alanine Aminotransferase (ALT/SGPT) 18 Alkaline Phosphatase 79 Total Protein 7.7 Albumin 4.5 3.5 # Globulin 3.20 Albumin/Globulin Ratio 1.40 Lipase 133 Phosphorus Level 5.0 H Magnesium Level 1.8 Medications Medication Current Medications Trazodone HCl (Desyrel) 50 mg HS PO Last administered on 07/28/18at 21:40; Admin Dose 50 MG; Start 07/28/18 at 21:00 Dextrose/Sodium Chloride 1,000 ml @ 100 mls/hr Q10H IV Last administered on 07/29/18 06:03; Admin Dose 100 MLS/HR; Start 07/28/18 at 17:00 IV Flush (NS 3 ml) 3 ml PER PROTOCOL IV ; Start 07/28/18 at 16:30 Ondansetron HCl (Zofran Inj) 4 mg Q6H PRN IV NAUSEA/VOMITING; Start 07/28/18 at 16:30 Morphine Sulfate (morphine) 2 mg Q4H PRN IV .SEVERE PAIN 7-10 Last administered on 07/29/18at 06:03; Admin Dose 2 MG; Start 07/28/18 at 16:30 Pantoprazole (Protonix Iv) 40 mg DAILY@06 IV Last administered on 07/29/18 06:03; Admin Dose 40 MG; Start 07/28/18 at 17:00 Enoxaparin Sodium (Lovenox) 30 mg DAILY SC Last administered on 07/28/18at 19:24; Admin Dose 30 MG; Start 07/28/18 at 17:00 Metoclopramide HCl (Reglan) 10 mg Q6 IV Last administered on 07/29/18at 06:03; Admin Dose 10 MG; Start 07/28/18 at 17:00 Escitalopram Oxalate (Lexapro) 20 mg HS PO Last administered on 07/28/18at 21:40; Admin Dose 20 MG; Start 07/28/18 at 21:30 Aripiprazole (Abilify) 10 mg BID PO Last administered on 07/29/18at 08:44; Admin Dose 10 MG; Start 07/28/18 at 22:30 ROD SHETH MD Jul 29, 2018 09:02
[2018-07-29] MEDS ORDERED: PHENOL 1.4% SOLN 180 ML BTL MT PRN (12:00)
[2018-07-29] MEDS: ENOXAPARIN 30 MG/0.3 ML SYG SC SCH (12:51)
[2018-07-29 14:00] VITALS: BP 138/75; PULSE 55; RESP 18
[2018-07-29 19:20] VITALS: BP 135/73; PULSE 112; RESP 18
[2018-07-29] MEDS: traZODone 50 MG TAB PO SCH (20:45)
[2018-07-29] MEDS: ESCITALOPRAM 10 MG TAB PO SCH (20:45)
[2018-07-30 02:00] VITALS: BP 144/68; PULSE 111; RESP 18
[2018-07-30] MEDS: DEXTROSE 5%-0.45% NACL 1,000 ML IV SCH ×2 (03:27→13:18)
[2018-07-30] MEDS: PANTOPRAZOLE 40 MG INJ IV SCH (05:20)
[2018-07-30] MEDS: METOCLOPRAMIDE 10 MG INJ IV SCH ×4 (05:20→23:50)
[2018-07-30 07:57] VITALS: BP 133/70; PULSE 97; RESP 18
--- NOTE | 2018-07-30 08:57 | PN ---
Date/Time of Note Date/Time of Note DATE: 07/30/18 TIME: 08:57 Assessment/Plan VTE Prophylaxis Risk score (from Ns)>0 risk: 7 SCD applied (from Ns): Yes Pharmacological prophylaxis: LMWH Lines/Catheters IV Catheter Type (from Nrsg): Peripheral IV Urinary Cath still in place: No Assessment/Plan Assessment/Plan 1. Abdominal pain - Continue with decompression via NG tube - Passing gas this am. Once output decreased and abdominal discomfort improves, will check SBFT - CT scan performed with high suspicion for SBO with presence of constipation - Pain control but will limit narcotics given decreases GI motility - IVF on board and will keep NPO 2. NIKUNJ- improving - most likely secondary to dehydration - will avoid nephrotoxic agents - monitor for improvement 3. Nausea with Vomiting- resolved - secondary to SBO vs partial SBO vs Ileus - Zofran PRN - supportive care 4. Ovarian Ca - followed by Oncologist at [facility]. Last chemo was prior to admission 5. Breast Ca 2005 - stable 6. Mood disorder - continue home medications 7. Disposition - Continue decompressing abdomen via NG tube. When NG outpt decreases and pain improves, will check SBFT Result Diagram: 07/29/18 0427 07/29/18 0427 Subjective 24 Hr Interval Summary Free Text/Dictation Patient still with output via NG but does admit to passing gas this am. Patient states abdominal pain has improved and complaining of hunger. Exam/Review of Systems Exam Vitals Vital Signs Date Temp Pulse Resp B/P (MAP) Pulse Ox O2 O2 Flow FiO2 Time Delivery Rate 07/30/18 98.7 97 18 133/70 91 Room Air 07:57 (91) Intake and Output 07/29/18 07/29/18 07/30/18 1515:00 23:00 07:00 IntakeIntake Total 1210 ml 950 ml OutputOutput Total 400 ml 600 ml BalanceBalance 810 ml 350 ml Exam General: Patient is laying in bed and answers questions. no acute distress Head: Normocephalic atraumatic, NG tube in place Chest: nontender Respiratory: Clear to auscultation bilaterally. no wheezing or rhonchi Cardiovascular: S1, S2, regular rate and rhythm, no obvious murmurs Gastrointestinal: soft, nontender, distended, bowel sounds active. no rebound or guarding Skin: No new skin lesions Medications Medication Current Medications Trazodone HCl (Desyrel) 50 mg HS PO Last administered on 07/29/18 20:45; Admin Dose 50 MG; Start 07/28/18 at 21:00 Dextrose/Sodium Chloride 1,000 ml @ 100 mls/hr Q10H IV Last administered on 07/30/18 03:27; Admin Dose 100 MLS/HR; Start 07/28/18 at 17:00 IV Flush (NS 3 ml) 3 ml PER PROTOCOL IV ; Start 07/28/18 at 16:30 Ondansetron HCl (Zofran Inj) 4 mg Q6H PRN IV NAUSEA/VOMITING; Start 07/28/18 at 16:30 Morphine Sulfate (morphine) 2 mg Q4H PRN IV .SEVERE PAIN 7-10 Last administered on 07/29/18 12:56; Admin Dose 2 MG; Start 07/28/18 at 16:30 Pantoprazole (Protonix Iv) 40 mg DAILY@06 IV Last administered on 07/30/18 05:20; Admin Dose 40 MG; Start 07/28/18 at 17:00 Enoxaparin Sodium (Lovenox) 30 mg DAILY SC Last administered on 07/29/18 12:51; Admin Dose 30 MG; Start 07/28/18 at 17:00 Metoclopramide HCl (Reglan) 10 mg Q6 IV Last administered on 07/30/18 05:20; Admin Dose 10 MG; Start 07/28/18 at 17:00 Escitalopram Oxalate (Lexapro) 20 mg HS PO Last administered on 07/29/18 20:45; Admin Dose 20 MG; Start 07/28/18 at 21:30 Aripiprazole (Abilify) 10 mg BID PO Last administered on 07/29/18 20:47; Admin Dose 10 MG; Start 07/28/18 at 22:30 Phenol (Chloraseptic Throat [place]) 2 spray Q2H PRN [place] SORE THROAT Last administered on 07/29/18 20:45; Admin Dose 2 SPRAY; Start 07/29/18 at 12:00 ROD SHETH MD Jul 30, 2018 08:57
[2018-07-30] MEDS: ENOXAPARIN 30 MG/0.3 ML SYG SC SCH (09:07)
[2018-07-30] MEDS: ARIPIPRAZOLE 10 MG TAB PO SCH ×2 (09:07→22:52)
[2018-07-30] MEDS ORDERED: BISACODYL 10 MG SUPP PR PRN (12:30)
[2018-07-30] MEDS ORDERED: POLYETHYLENE GLYCOL 3350 119 GM POWDER PO ONE (12:30)
[2018-07-30] MEDS ORDERED: POLYETHYLENE GLYCOL 17 GM PACKET PO ONE (13:00)
[2018-07-30 16:42] VITALS: BP 130/67; PULSE 92; RESP 18
[2018-07-30 20:05] VITALS: BP 156/85; PULSE 98; RESP 18
[2018-07-30] MEDS: ESCITALOPRAM 10 MG TAB PO SCH (22:52)
[2018-07-30] MEDS: traZODone 50 MG TAB PO SCH (22:52)
[2018-07-31 02:07] VITALS: BP 144/74; PULSE 99; RESP 18
[2018-07-31] MEDS: DEXTROSE 5%-0.45% NACL 1,000 ML IV SCH ×2 (02:27→12:59)
[2018-07-31] MEDS: METOCLOPRAMIDE 10 MG INJ IV SCH ×4 (06:22→23:36)
[2018-07-31] MEDS: PANTOPRAZOLE 40 MG INJ IV SCH (06:22)
[2018-07-31 07:50] VITALS: BP 136/75; PULSE 81; RESP 18
[2018-07-31] MEDS: ARIPIPRAZOLE 10 MG TAB PO SCH ×2 (09:57→20:51)
[2018-07-31] MEDS: ENOXAPARIN 30 MG/0.3 ML SYG SC SCH (10:00)
[2018-07-31] MEDS ORDERED: DIATR MEGLU/DIATRIZOATE SODIUM 120 ML BTL ONE (13:28)
--- NOTE | 2018-07-31 14:10 | PN ---
Date/Time of Note Date/Time of Note DATE: 07/31/18 TIME: 14:09 Objective Vitals Vital Signs Date Temp Pulse Resp B/P (MAP) Pulse Ox O2 O2 Flow FiO2 Time Delivery Rate 07/31/18 98.0 81 18 136/75 99 Room Air 07:50 (95) Intake and Output 07/30/18 07/30/18 07/31/18 1515:00 23:00 07:00 IntakeIntake Total 900 ml 400 ml 900 ml OutputOutput Total 275 ml 1500 ml 400 ml BalanceBalance 625 ml -1100 ml 500 ml Results Result Diagram: 07/31/1843107/31/18431 Medications Medications Current Medications Trazodone HCl (Desyrel) 50 mg HS PO Last administered on 07/30/18 22:52; Admin Dose 50 MG; Start 07/28/18 at 21:00 Dextrose/Sodium Chloride 1,000 ml @ 100 mls/hr Q10H IV Last administered on 07/31/18 12:59; Admin Dose 100 MLS/HR; Start 07/28/18 at 17:00 IV Flush (NS 3 ml) 3 ml PER PROTOCOL IV ; Start 07/28/18 at 16:30 Ondansetron HCl (Zofran Inj) 4 mg Q6H PRN IV NAUSEA/VOMITING Last administered on 07/30/18 23:19; Admin Dose 4 MG; Start 07/28/18 at 16:30 Morphine Sulfate (morphine) 2 mg Q4H PRN IV .SEVERE PAIN 7-10 Last administered on 07/29/18 12:56; Admin Dose 2 MG; Start 07/28/18 at 16:30 Pantoprazole (Protonix Iv) 40 mg DAILY@06 IV Last administered on 07/31/18 06:22; Admin Dose 40 MG; Start 07/28/18 at 17:00 Enoxaparin Sodium (Lovenox) 30 mg DAILY SC Last administered on 07/31/18 10:00; Admin Dose 30 MG; Start 07/28/18 at 17:00 Metoclopramide HCl (Reglan) 10 mg Q6 IV Last administered on 07/31/18 12:58; Admin Dose 10 MG; Start 07/28/18 at 17:00 Escitalopram Oxalate (Lexapro) 20 mg HS PO Last administered on 3/10/19at 22:52; Admin Dose 20 MG; Start 07/28/18 at 21:30 Aripiprazole (Abilify) 10 mg BID PO Last administered on 07/31/18at 09:57; Admin Dose 10 MG; Start 07/28/18 at 22:30 Phenol (Chloraseptic Throat [place]) 2 spray Q2H PRN MT SORE THROAT Last administered on 07/29/18at 20:45; Admin Dose 2 SPRAY; Start 07/29/18 at 12:00 Bisacodyl (Dulcolax Supp) 10 mg DAILY PRN [place] CONSTIPATION; Start 07/30/18 at 12:30 VTE Prophylaxis Risk score (from [facility])>0 risk: 7 SCD applied (from [facility]): Yes Lines/Catheters IV Catheter Type: Escalante in Place: No Assessment/Plan Hospital Course Subjective Still having nausea but no abdominal pain, having bowel movements Objective Physical exam General: Patient is laying in bed and answers questions appropriately Mentation: Patient is alert and oriented 4, Head: Normocephalic atraumatic Eyes: EOMI, pupils reactive to light Neck: Supple, nontender, midline Respiratory: Clear to auscultation bilaterally Cardiovascular: regular rate, no obvious murmurs Gastrointestinal: Minimally tender to nontender to palpation, bowel sounds heard. Neurological: Moves all extremities spontaneously Skin: No new skin lesions Assessment/Plan 1. Abdominal pain - pt pulled out NG tube, refused reinsertion - passing gas/bm - CT scan performed with high suspicion for SBO with presence of constipation - Pain control but will limit narcotics given decreases GI motility - IVF on board and will keep NPO until SBFT negative. 2. NIKUNJ- improving - most likely secondary to dehydration - will avoid nephrotoxic agents - monitor for improvement 3. Nausea with Vomiting- resolved - secondary to SBO vs partial SBO vs Ileus - Zofran PRN - supportive care 4. Ovarian Ca - followed by Oncologist at [facility]. Last chemo was prior to admission 5. Breast Ca 2005 - stable 6. Mood disorder - continue home medications 7. Disposition -SBFT pending, if negative for SBO, will slowly restart diet. ANDRE PEARCE Jul 31, 2018 14:10
[2018-07-31 15:20] VITALS: BP 143/77; PULSE 78; RESP 18
[2018-07-31 20:10] VITALS: BP 167/75; PULSE 85; RESP 18
[2018-07-31] MEDS: traZODone 50 MG TAB PO SCH (20:51)
[2018-07-31] MEDS: ESCITALOPRAM 10 MG TAB PO SCH (20:51)
[2018-07-31] MEDS ORDERED: ACETAMINOPHEN 325 MG TAB PO PRN (22:00)
[2018-08-01] MEDS: DEXTROSE 5%-0.45% NACL 1,000 ML IV SCH ×3 (01:00→21:37)
[2018-08-01 02:25] VITALS: BP 147/72; PULSE 94; RESP 18
[2018-08-01] MEDS: METOCLOPRAMIDE 10 MG INJ IV SCH ×4 (06:04→23:43)
[2018-08-01] MEDS: PANTOPRAZOLE 40 MG INJ IV SCH (06:04)
[2018-08-01 07:40] VITALS: BP 138/75; PULSE 81; RESP 20
[2018-08-01] MEDS: ENOXAPARIN 30 MG/0.3 ML SYG SC SCH (10:32)
[2018-08-01 15:04] VITALS: BP 128/69; PULSE 84; RESP 20
[2018-08-01] MEDS: ARIPIPRAZOLE 10 MG TAB PO SCH ×2 (15:09→21:36)
--- NOTE | 2018-08-01 15:17 | PN ---
Date/Time of Note Date/Time of Note DATE: 08/01/18 TIME: 15:15 Objective Vitals Vital Signs Date Temp Pulse Resp B/P (MAP) Pulse Ox O2 O2 Flow FiO2 Time Delivery Rate 08/01/18 97.9 84 20 128/69 97 Room Air 15:04 (88) Intake and Output 07/31/18 07/31/18 08/01/18 1515:00 23:00 07:00 IntakeIntake Total 700 ml 550 ml 550 ml OutputOutput Total 200 ml BalanceBalance 700 ml 550 ml 350 ml Results Result Diagram: 08/01/18 0423 08/01/18 0423 Medications Medications Current Medications Trazodone HCl (Desyrel) 50 mg HS PO Last administered on 07/31/18 20:51; Admin Dose 50 MG; Start 07/28/18 at 21:00 Dextrose/Sodium Chloride 1,000 ml @ 100 mls/hr Q10H IV Last administered on 08/01/18 11:54; Admin Dose 100 MLS/HR; Start 07/28/18 at 17:00 IV Flush (NS 3 ml) 3 ml PER PROTOCOL IV ; Start 07/28/18 at 16:30 Ondansetron HCl (Zofran Inj) 4 mg Q6H PRN IV NAUSEA/VOMITING Last administered on 07/30/18 23:19; Admin Dose 4 MG; Start 07/28/18 at 16:30 Morphine Sulfate (morphine) 2 mg Q4H PRN IV .SEVERE PAIN 7-10 Last administered on 07/29/18 12:56; Admin Dose 2 MG; Start 07/28/18 at 16:30 Pantoprazole (Protonix Iv) 40 mg DAILY@06 IV Last administered on 08/01/18 06:04; Admin Dose 40 MG; Start 07/28/18 at 17:00 Enoxaparin Sodium (Lovenox) 30 mg DAILY SC Last administered on 08/01/18 10:32; Admin Dose 30 MG; Start 07/28/18 at 17:00 Metoclopramide HCl (Reglan) 10 mg Q6 IV Last administered on 08/01/18 15:09; Admin Dose 10 MG; Start 07/28/18 at 17:00 Escitalopram Oxalate (Lexapro) 20 mg HS PO Last administered on 3/11/19at 20:51; Admin Dose 20 MG; Start 07/28/18 at 21:30 Aripiprazole (Abilify) 10 mg BID PO Last administered on 08/01/18at 15:09; Admin Dose 10 MG; Start 07/28/18 at 22:30 Phenol (Chloraseptic Throat [place]) 2 spray Q2H PRN MT SORE THROAT Last administered on 07/29/18at 20:45; Admin Dose 2 SPRAY; Start 07/29/18 at 12:00 Bisacodyl (Dulcolax Supp) 10 mg DAILY PRN [place] CONSTIPATION; Start 07/30/18 at 12:30 Acetaminophen (Tylenol Tab) 650 mg Q6H PRN PO MILD PAIN(1-3)OR ELEVATED TEMP Last administered on 07/31/18at 23:36; Admin Dose 650 MG; Start 07/31/18 at 22:00 VTE Prophylaxis Risk score (from Ns)>0 risk: 5 SCD applied (from [facility]): Yes Lines/Catheters IV Catheter Type: Escalante in Place: No Assessment/Plan Hospital Course Subjective Minimal to no nausea, no abdominal pain, having bowel movements Objective Physical exam General: Patient is laying in bed and answers questions appropriately Mentation: Patient is alert and oriented 4, Head: Normocephalic atraumatic Eyes: EOMI, pupils reactive to light Neck: Supple, nontender, midline Respiratory: Clear to auscultation bilaterally Cardiovascular: regular rate, no obvious murmurs Gastrointestinal: nontender to palpation, bowel sounds heard. Neurological: Moves all extremities spontaneously Skin: No new skin lesions Assessment/Plan 1. Abdominal pain -Resolved -Small bowel follow-through showing ileus versus partial SBO, -No abdominal pain, minimal to no nausea, passing bowel movements, will try trial of clears 2. NIKUNJ- improving - most likely secondary to dehydration - will avoid nephrotoxic agents - monitor for improvement 3. Nausea with Vomiting- resolved -Resolved, monitor 4. Ovarian Ca - followed by Oncologist at [facility]. Last chemo was prior to admission 5. Breast Ca 2006 - stable 6. Mood disorder - continue home medications 7. Disposition -Clear liquid diet for now, if patient has recurrence of symptoms, will need to place back on n.p.o. with NG tube. ANDRE PEARCE Aug 01, 2018 15:17
[2018-08-01 20:15] VITALS: BP 157/78; PULSE 84; RESP 18
[2018-08-01] MEDS: ESCITALOPRAM 10 MG TAB PO SCH (21:36)
[2018-08-01] MEDS: traZODone 50 MG TAB PO SCH (21:36)
[2018-08-02 02:36] VITALS: BP 150/70; PULSE 88; RESP 18
[2018-08-02] MEDS: METOCLOPRAMIDE 10 MG INJ IV SCH (05:52)
[2018-08-02] MEDS: PANTOPRAZOLE 40 MG INJ IV SCH (05:52)
[2018-08-02 07:30] VITALS: BP 138/82; PULSE 86; RESP 18
[2018-08-02] MEDS: ARIPIPRAZOLE 10 MG TAB PO SCH (08:51)
[2018-08-02] MEDS: ENOXAPARIN 30 MG/0.3 ML SYG SC SCH (08:52)
[2018-08-02] MEDS: DEXTROSE 5%-0.45% NACL 1,000 ML IV SCH (08:53)
--- NOTE | 2018-08-02 11:20 | PDOCDIS ---
Discharge Instructions CONDITION [id number] Patient Condition: Asucv4c Stable FOLLOW UP/APPOINTMENTS Follow-up Plan Please follow-up with your primary care provider as soon as possible. Please slowly progress up with your diet, soft foods first for the first few days. ANDRE PEARCE Aug 02, 2018 11:20
--- NOTE | 2018-08-02 11:24 | DS ---
Date/Time of Note Date/Time of Note DATE: 08/02/18 TIME: 11:23 Discharge Summary Admission/Discharge Info Admit Date/Time Jul 28, 2018 at 15:02 Discharge Date/Time Patient Condition: Stable Hospital Course Patient is a female with a past medical history significant for mood disorder, breast and ovarian cancer followed by an oncologist at [facility] who presents to [facility] for abdominal pain found to have small bowel obstruction. Patient was treated conservatively with gastric decompression as well as being n.p.o. Patient subsequently had improvement of symptoms and is currently tolerating oral intake well. Patient does have a history of hysterectomy which is likely causing adhesions which is likely the cause of patient's SBO. Patient understands to slowly increase diet and to follow-up with her primary care provider as soon as possible. Currently patient feels well, has been passing bowel movements, tolerating diet, no nausea no vomiting and no abdominal pain. Patient knows to bring up her acute kidney injury to her primary care provider. Discharge diagnoses Abdominal pain, resolved Small bowel obstruction, resolved Acute kidney injury, resolving Ovarian cancer, followed by oncologist at [facility] History of breast cancer Mood disorder Home Meds Reported Medications Trazodone Hcl* (Trazodone Hcl*) Unknown Strength Tablet, 1 TAB PO QHS, #30 TAB 07/28/18 Escitalopram Oxalate* (Lexapro*) 20 Mg Tablet, 20 MG PO DAILY, #30 TAB 07/28/18 Aripiprazole* (Abilify*) 10 Mg Tablet, 10 MG PO DAILY, #30 TAB 07/28/18 Discontinued Scripts Hydrocodone/Acetaminophen (Rison 5-325 Tablet) 1 Each Tablet, 1 TAB PO Q6H PRN for PAIN, #7 TAB Prov:ADDY WRIGHT DO 12/09/16 Phenazopyridine Hcl* (Pyridium*) 100 Mg Tab, 100 MG PO TID PRN for URINARY PAIN, #8 TAB Prov:ADDY WRIGHT DO 12/09/16 Ciprofloxacin Hcl* (Ciprofloxacin Hcl*) 500 Mg Tablet, 500 MG PO BID for 14 Days, TAB Prov:ADDY WRIGHT DO 12/09/16 Follow-up Plan Please follow-up with your primary care provider as soon as possible. Please slowly progress up with your diet, soft foods first for the first few days. Primary Care Provider Care Physician No Primary Time spent on discharge: > 30 minutes Pending Labs Laboratory Tests Test 08/02/18 04:24 White Blood Count 2.9 10^3/ul (4.8-10.8) Red Blood Count 3.59 10^6/ul (4.20-5.40) Hemoglobin 10.2 g/dl (12.0-16.0) Hematocrit 32.7 % (37.0-47.0) Mean Corpuscular Volume 91.1 fl (82.0-101.0) Mean Corpuscular Hemoglobin 28.4 pg (29.0-33.0) Mean Corpuscular Hemoglobin Concent 31.2 g/dl (32.0-37.0) Red Cell Distribution Width 15.9 % (11.5-14.5) Platelet Count 140 10^3/UL (140-415) Mean Platelet Volume 9.6 fl (7.4-10.4) Immature Granulocytes % 0.700 % (0.001-0.429) Neutrophils % 46.6 % (39.0-77.0) Lymphocytes % 28.8 % (15.0-51.0) Monocytes % 19.4 % (0.0-11.0) Eosinophils % 3.8 % (0.0-7.0) Basophils % 0.7 % (0.0-2.0) Nucleated Red Blood Cells % 0.0 /100WBC (0.0-0.0) Immature Granulocytes # 0.020 10^3/ul (0.0-0.031) Neutrophils # 1.3 10^3/ul (1.6-7.5) Lymphocytes # 0.8 10^3/ul (0.8-2.9) Monocytes # 0.6 10^3/ul (0.3-0.9) Eosinophils # 0.1 10^3/ul (0.0-0.5) Basophils # 0.0 10^3/ul (0.0-0.1) Nucleated Red Blood Cells # 0.0 10^3/ul (0.0-0.0) Sodium Level 142 mmol/L (135-144) Potassium Level 3.8 mmol/L (3.5-5.1) Chloride Level 109 mmol/L (97-110) Carbon Dioxide Level 24 mmol/L (21-31) Anion Gap 9 (5-13) Blood Urea Nitrogen 8 mg/dl (7-20) Creatinine 1.22 mg/dl (0.44-1.00) Est Glomerular Filtrat Rate mL/min 45 mL/min (>60) Glucose Level 99 mg/dl (70-220) Calcium Level 8.2 mg/dl (8.4-10.2) Phosphorus Level 2.9 mg/dl (2.5-4.9) Magnesium Level 1.8 mg/dl (1.7-2.5) ANDRE PEARCE Aug 02, 2018 11:24
[2018-08-02 13:54] VITALS: BP 179/84; PULSE 79; RESP 18
[2018-08-02 14:02] VITALS: BP 162/86
[2018-08-02 16:00] VITALS: BP 142/81; PULSE 81; RESP 16
== END 2018-08-02 16:00 | disposition home or self-care (01) | DRG 389 ==
LOC: E/R 12:22 → MS1 15:02
PROVIDERS: ADMIT Internal Medicine; ATTEND Internal Medicine
DX: K56.50 Intestinal adhesions [bands], unspecified as to partial versus complete obstruction (principal); N17.9 Acute kidney failure, unspecified; C56.9 Malignant neoplasm of unspecified ovary; E86.0 Dehydration; F39 Unspecified mood [affective] disorder; Z88.0 Allergy status to penicillin; Z90.13 Acquired absence of bilateral breasts and nipples; Z90.710 Acquired absence of both cervix and uterus; Z85.3 Personal history of malignant neoplasm of breast
CPT/HCPCS: 36415; 71045; 74176; 74250; 80048; 80053; 80069; 83690; 83735; 84100; 85025; 96374; 96375; 97116; 97161; 97530; C9113; J0400; J1650; J2270; J2405; J2765; J7030; J7042

== ENCOUNTER 2018-08-06 19:42 | Inpatient (IN) | payer OTHER ==
[~2018-08-06] VITALS: Ht 162.6 cm; Wt 90.6 kg
[~2018-08-06 19:42] MED LIST changes: +ARIP10TA12 PO; -CIPR500T4 PO; +ESCI20TA PO; -HYDR-4011 PO; -PHEN-537 PO; +TRA100 PO
[2018-08-06] MEDS ORDERED: morphine 4 MG/ML VIAL IV STA (21:20)
[2018-08-06] MEDS ORDERED: ONDANSETRON 4 MG INJ IV STA (21:20)
[2018-08-06] MEDS ORDERED: SOD CHLORIDE 0.9% 500 ML IV STA (21:20)
--- NOTE | 2018-08-07 00:58 | ERD ---
ER Documentation Chief Complaint Chief Complaint AP ACCOMPANIED BY N/V. S/P SMALL BOWEL OBSTRUCTION X4 DAYS AGO HPI 63-year-old female with abdominal pain, but nausea vomiting. Patient says she discharged after having a small bowel obstruction 4 days ago. She says she had a recurrence of the pain today with vomiting which was non-feculent and nonbilious. She denies any fevers or chills. Denies any blood in her vomit. Denies any other current issues. ROS All systems reviewed and are negative except as per history of present illness. Medications Home Meds Reported Medications Trazodone Hcl* (Trazodone Hcl*) Unknown Strength Tablet, 1 TAB PO QHS, #30 TAB 07/28/18 Escitalopram Oxalate* (Lexapro*) 20 Mg Tablet, 20 MG PO DAILY, #30 TAB 07/28/18 Aripiprazole* (Abilify*) 10 Mg Tablet, 10 MG PO DAILY, #30 TAB 07/28/18 Allergies Allergies: Coded Allergies: Penicillins (Verified Allergy, Intermediate, 07/28/18) PMhx/Soc History of Surgery: Yes (BILATERAL MASTECTOMY 2006) Anesthesia Reaction: No Hx Neurological Disorder: No Hx Respiratory Disorders: No Hx Cardiac Disorders: No Hx Psychiatric Problems: No Hx Miscellaneous Medical Probl: Yes (SBO, BREAST AND OVARIN CANCER) Hx Alcohol Use: No Hx Substance Use: No Hx Tobacco Use: No Smoking Status: Never smoker Physical Exam Vitals Vital Signs Date Temp Pulse Resp B/P (MAP) Pulse Ox O2 O2 Flow FiO2 Time Delivery Rate 08/07/18 74 14 120/70 97 Nasal 2.0 00:00 (87) Cannula 08/06/18 82 18 141/81 98 Nasal 2.0 22:38 (101) Cannula 08/06/18 98.3 80 16 112/67 95 20:02 (82) Physical Exam Const: No acute distress Head: Atraumatic Eyes: Normal Conjunctiva ENT: Normal External Ears, Nose and Mouth. Neck: Full range of motion. No meningismus. Resp: Clear to auscultation bilaterally Cardio: Regular rate and rhythm, no murmurs Abd: Soft, non tender, non distended. Normal bowel sounds Skin: No petechiae or rashes Back: No midline or flank tenderness Ext: No cyanosis, or edema Neur: Awake and alert Psych: Normal Mood and Affect Result Diagram: 08/06/18213608/06/182136 Results 24 hrs Laboratory Tests Test 08/06/18 21:37 White Blood Count 6.5 10^3/ul Red Blood Count 4.82 10^6/ul Hemoglobin 13.6 g/dl Hematocrit 42.8 % Mean Corpuscular Volume 88.8 fl Mean Corpuscular Hemoglobin 28.2 pg Mean Corpuscular Hemoglobin Concent 31.8 g/dl Red Cell Distribution Width 16.4 % Platelet Count 326 10^3/UL Mean Platelet Volume 10.0 fl Immature Granulocytes % 0.500 % Neutrophils % 66.7 % Lymphocytes % 21.7 % Monocytes % 9.8 % Eosinophils % 0.8 % Basophils % 0.5 % Nucleated Red Blood Cells % 0.0 /100WBC Immature Granulocytes # 0.030 10^3/ul Neutrophils # 4.4 10^3/ul Lymphocytes # 1.4 10^3/ul Monocytes # 0.6 10^3/ul Eosinophils # 0.1 10^3/ul Basophils # 0.0 10^3/ul Nucleated Red Blood Cells # 0.0 10^3/ul Urine Color ALEXA Urine Clarity TURBID Urine pH 5.0 Urine Specific [place] 1.024 Urine Ketones TRACE mg/dL Urine Nitrite NEGATIVE mg/dL Urine Bilirubin 2+ mg/dL Urine Urobilinogen 2+ mg/dL Urine Leukocyte Esterase TRACE [place]/ul Urine Microscopic RBC 0 /HPF Urine Microscopic WBC 20 /HPF Urine Squamous Epithelial Cells MANY /HPF Urine Renal Epithelial Cells MODERATE /HPF Urine Bacteria MODERATE /HPF Urine Hyaline Casts FEW /HPF Urine Mucus FEW /HPF Urine Hemoglobin NEGATIVE mg/dL Urine Glucose NEGATIVE mg/dL Urine Total Protein 1+ mg/dl Sodium Level 143 mmol/L Potassium Level 3.5 mmol/L Chloride Level 90 mmol/L Carbon Dioxide Level 30 mmol/L Anion Gap 23 Blood Urea Nitrogen 53 mg/dl Creatinine 4.27 mg/dl Est Glomerular Filtrat Rate mL/min 10 mL/min Glucose Level 120 mg/dl Calcium Level 9.6 mg/dl Total Bilirubin 0.3 mg/dl Direct Bilirubin 0.00 mg/dl Indirect Bilirubin 0.3 mg/dl Aspartate Amino Transf (AST/SGOT) 38 IU/L Alanine Aminotransferase (ALT/SGPT) 48 IU/L Alkaline Phosphatase 112 IU/L Total Protein 8.2 g/dl Albumin 4.6 g/dl Globulin 3.60 g/dl Albumin/Globulin Ratio 1.27 Lipase 264 U/L Current Medications Medications Dose Sig/Starla Start Time Status Last (Trade) Ordered Route PRN Stop Time Admin Dose Reason Admin Sodium 500 ml @ Q1H STAT 08/06/18 DC 08/06/18 Chloride 500 mls/hr IV 21:20 22:23 08/06/18 22:19 Morphine 4 mg ONCE STAT 08/06/18 DC 08/06/18 Sulfate IV 21:20 22:22 (morphine) 08/06/18 21:21 Ondansetron 4 mg ONCE STAT 08/06/18 DC 08/06/18 HCl (Zofran IV 21:20 22:22 Inj) 08/06/18 21:21 Procedures/MDM Emergency department course: Patient seen and evaluated triage nurse. Placed in bed from evaluation. Management is accepted. Given pain medication. Had NG tube placed. Blood work was sent off. A stat CT scan of the abdomen and pelvis. Serial exams remained stable. Pain somewhat resolved with administration of pain meds, however patient continued to have diffuse global abdominal pain with no rebound or guarding Diagnostic data: EKG: Rate/Rhythm: [Normal Sinus Rhythm] QRS, ST, T-waves: [No changes consistent w/ acute ischemia] Impression: [No evidence of ischemia or arrhythmia] CT shows high-grade small bowel obstruction. Please see the full dictation by the radiologist for the full report. Medical decision makin-year-old female with acute small bowel obstruction. Patient will be admitted to the hospitalist service. Dr. Sanders has kindly agreed to consult on the patient and requested NG tube placement. At this time patient is clinically stable will be admitted to the medical surgical floor Departure Diagnosis: Primary Impression: Abdominal pain Abdominal location: unspecified location Qualified Codes: R10.9 - Unspecified abdominal pain Additional Impression: Small bowel obstruction Condition: Serious DERIC BHATT Aug 07, 2018 00:58
[2018-08-07 01:30] VITALS: BP 147/73; PULSE 83; RESP 18
[2018-08-07 01:49] VITALS: Ht 162.6 cm; Wt 90.6 kg
[2018-08-07] MEDS ORDERED: LORAZEPAM 2 MG INJ IV PRN (03:00)
[2018-08-07] MEDS ORDERED: ONDANSETRON 4 MG INJ IV PRN (03:00)
[2018-08-07] MEDS ORDERED: NACL 0.9% 3 ML SYG IV SCH (03:00)
[2018-08-07] MEDS ORDERED: ALBUTEROL/IPRATROPIUM (NEB) 3 ML AMP HHN PRN (03:00)
[2018-08-07] MEDS: DEXTROSE 5%-0.45% NACL 1,000 ML IV SCH ×3 (03:24→22:01)
[2018-08-07] MEDS: CIPROFLOXACIN 200 MG/D5W IVPB 100 ML IV* SCH ×2 (03:44→17:58)
--- NOTE | 2018-08-07 06:24 | HP ---
Date/Time of Note Date/Time of Note DATE: 08/07/18 TIME: 06:17 Assessment/Plan VTE Prophylaxis SCD applied (from Nsg): Yes Pharmacological prophylaxis: NA/contraindicated Pharm contraindication: other (Patient with SBO, awaiting surgical evaluation) Lines/Catheters IV Catheter Type (from Nrsg): Saline Lock Assessment/Plan Assessment/Plan 1. High-grade small bowel obstruction, recurrent -Patient was just discharged from here 5 days ago after she was admitted for SBO, which was conservatively managed -Keep n.p.o. with IV fluid -NG tube to suction -Pain meds and antiemetics as needed -Surgical consult 2. Acute on CKD -Kidney function has been worsening -Given history of ovarian cancer, ? Obstruction -will hydrate and place a [place] -Obtain renal ultrasound and nephrology consult 3. Ovarian cancer: Patient follows up at [facility]. Last chemo was earlier this month 4. History of breast cancer: No acute issue 5. UTI: IV antibiotic -Follow-up urine culture results Result Diagram: 08/07/185 08/07/18 0445 Results 24hrs Laboratory Tests Test 08/06/18 21:37 08/07/18 04:45 White Blood Count 6.5 # 5.7 Red Blood Count 4.82 # 4.24 Hemoglobin 13.6 # 11.9 L Hematocrit 42.8 # 38.5 Mean Corpuscular Volume 88.8 90.8 Mean Corpuscular Hemoglobin 28.2 L 28.1 L Mean Corpuscular Hemoglobin Concent 31.8 L 30.9 L Red Cell Distribution Width 16.4 H 16.5 H Platelet Count 326 # 238 # Mean Platelet Volume 10.0 9.7 Immature Granulocytes % 0.500 H 0.500 H Neutrophils % 66.7 63.5 Lymphocytes % 21.7 21.9 Monocytes % 9.8 12.0 H Eosinophils % 0.8 1.6 Basophils % 0.5 0.5 Nucleated Red Blood Cells % 0.0 0.0 Immature Granulocytes # 0.030 0.030 Neutrophils # 4.4 3.6 Lymphocytes # 1.4 1.2 Monocytes # 0.6 0.7 Eosinophils # 0.1 0.1 Basophils # 0.0 0.0 Nucleated Red Blood Cells # 0.0 0.0 Urine Color ALEXA Urine Clarity TURBID A Urine pH 5.0 Urine Specific [place] 1.024 Urine Ketones TRACE A Urine Nitrite NEGATIVE Urine Bilirubin 2+ H Urine Urobilinogen 2+ H Urine Leukocyte Esterase TRACE A Urine Microscopic RBC 0 Urine Microscopic WBC 20 H Urine Squamous Epithelial Cells MANY A Urine Renal Epithelial Cells MODERATE Urine Bacteria MODERATE Urine Hyaline Casts FEW A Urine Mucus FEW A Urine Hemoglobin NEGATIVE Urine Glucose NEGATIVE Urine Total Protein 1+ H Sodium Level 143 144 Potassium Level 3.5 3.9 Chloride Level 90 L 97 Carbon Dioxide Level 30 35 H Anion Gap 23 H 12 # Blood Urea Nitrogen 53 H 57 H Creatinine 4.27 H 4.11 H Est Glomerular Filtrat Rate mL/min 10 L 11 L Glucose Level 120 132 Calcium Level 9.6 8.7 Total Bilirubin 0.3 0.1 L Direct Bilirubin 0.00 0.00 Indirect Bilirubin 0.3 0.1 Aspartate Amino Transf (AST/SGOT) 38 33 Alanine Aminotransferase (ALT/SGPT) 48 44 Alkaline Phosphatase 112 81 Total Protein 8.2 H 6.8 # Albumin 4.6 3.7 Globulin 3.60 H 3.10 Albumin/Globulin Ratio 1.27 1.19 Lipase 264 Phosphorus Level 5.8 H Magnesium Level 2.1 HPI/ROS Admit Date/Time Admit Date/Time Aug 07, 2018 at 00:41 Hx of Present Illness This is a 63-year-old female with a history of small bowel obstruction, CKD, breast and ovarian cancer followed by an oncologist at [facility] who presents to [facility] for abdominal pain. She also reported associated nausea and vomiting. When presented to ER, CT abdomen/pelvis shows high-grade small bowel obstruction. Patient was just discharged from here 5 days ago after she was admitted for small bowel obstruction. At that time she was conservatively managed with bowel decompression with NG tube. PMH/Family/Social Past Medical History Medical History: other (See HPI) Medications Current Medications Dextrose/Sodium Chloride 1,000 ml @ 100 mls/hr Q10H IV Last administered on 08/07/18at 03:24; Admin Dose 100 MLS/HR; Start 08/07/18 at 02:47 IV Flush (NS 3 ml) 3 ml PER PROTOCOL IV ; Start 08/07/18 at 03:00 Ondansetron HCl (Zofran Inj) 4 mg Q6H PRN IV NAUSEA/VOMITING; Start 08/07/18 at 03:00 Morphine Sulfate (morphine) 2 mg Q4H PRN IV .SEVERE PAIN 7-10; Start 08/07/18 at 03:00 Famotidine (Pepcid Iv) 20 mg DAILY IV ; Start 08/07/18 at 09:00 Albuterol/ Ipratropium (Duoneb) 3 ml Q2H RESP THERAPY PRN HHN SHORTNESS OF BREATH; Start 08/07/18 at 03:00 Lorazepam (Ativan) 1 mg Q4H PRN IV anxiety; Start 08/07/18 at 03:00 Ciprofloxacin/ Dextrose 100 ml @ 200 mls/hr Q12@0600,1800 IV* Last administered on 08/07/18at 03:44; Admin Dose 200 MLS/HR; Start 08/07/18 at 04:00 Influenza Virus Vaccine Quadrival (Fluzone) 0.5 ml ONCE ONCE IM* ; Start 08/09/18 at 10:00; Stop 08/09/18 at 10:01 Coded Allergies: Penicillins (Verified Allergy, Intermediate, 07/28/18) Past Surgical History Past Surgical Hx: other (See HPI) Family History Significant Family History: no pertinent family hx Social History Alcohol Use: none Smoking Status: Never smoker Drug Use: none Exam/Review of Systems Vital Signs Vitals Vital Signs Date Temp Pulse Resp B/P (MAP) Pulse Ox O2 O2 Flow FiO2 Time Delivery Rate 08/07/18 97.6 83 18 147/73 97 Room Air 01:30 (97) 08/07/18 2.0 01:22 Intake and Output 08/06/18 08/06/18 08/07/18 1515:00 23:00 07:00 IntakeIntake Total 100 ml BalanceBalance 100 ml Exam Constitutional: other (No acute distress) Head: normocephalic, atraumatic ENMT: other (NG tube in place) Respiratory: clear to auscultation Cardiovascular: regular rate and rhythm, nl pulses Gastrointestinal: soft, tender Extremities: normal pulses DERIC HERNÁNDEZ MD Aug 07, 2018 06:24
[2018-08-07 07:19] VITALS: BP 118/74; PULSE 75; RESP 16
[2018-08-07] MEDS: FAMOTIDINE 20 MG INJ IV SCH (09:30)
[2018-08-07 13:56] VITALS: BP 122/59; PULSE 76; RESP 17
--- NOTE | 2018-08-07 16:43 | PN ---
Date/Time of Note Date/Time of Note DATE: 08/07/18 TIME: 16:42 Assessment/Plan VTE Prophylaxis Risk score (from Ns)>0 risk: 3 SCD applied (from Ns): No SCD contraindicated: other Pharmacological prophylaxis: NA/contraindicated Pharm contraindication: surgical contra Lines/Catheters IV [facility] ([facility] Saline Lock Assessment/Plan Hospital Course SUBJECTIVE: Verbalized that the abdominal pain is slightly better. NGT still draining out fluid. OBJECTIVE: Physical Exam General: Obese, 63 year-old male lying in bed in no apparent distress. HEENT: Normocephalic, atraumatic. Eyes: Anicteric sclerae, conjunctivae clear. ENT: Nasal septum midline, oral mucosa is dry. Respiratory: Bilaterally clear breath sounds. No use of accessory muscles of respiration. No adventitious breath sounds. Cardiovascular: S1, S2 heard. Regular rate and rhythm. Abdomen: Distended. Surgical scars. Genitourinary: Deferred. Extremities: No cyanosis. Peripheral pulses palpable. Neurologic: Cranial nerves II through XII grossly intact. The patient is awake, alert, and oriented. Skin: Normal skin turgor. No skin rashes. Labs & Vitals per chart ASSESSMENT & PLAN 63-year-old female with comorbidities including chronic kidney disease, ovarian cancer currently getting chemotherapy at [facility], obesity, and rec urrent small bowel obstructions. The patient came to the emergency room with chief complaint of abdominal pain with CT scan showing high-grade small bowel obstruction with a transition point along the distal lumen in the inferior right pelvis. Therefore, the patient was admitted to inpatient setting for further treatment and evaluation. 1. High-grade small bowel obstruction with a transition point along the distal ileum. -Continue NGT decompression. -Surgery has been consulted. -Continue pain control. 2. Chronic kidney disease. -Monitor BUN and creatinine closely. -Avoid nephrotoxic medications. -Nephrology consult. 3. History of ovarian cancer. -Undergoes chemotherapy at [facility]. 4. Remote history of breast cancer. 5. Anxiety disorder. -Resume anxiolytics once able to tolerate oral intake. 6. Positive urinalysis -On empiric antimicrobials for any underlying UTI. -Pending urine cultures. 7. Obesity. -BMI more than 34. 8. Fluids, electrolytes, and nutrition. -N.p.o. -IV fluids. 9. DVT prophylaxis -Bilateral SCDs. 10. Plan. -Continue NGT decompression. -Order a small bowel follow-through when the NGT output is minimal. -Await surgical evaluation. The patient was seen in collaboration with Dr. Rosa. Result Diagram: 08/07/185 08/07/185 Results 24hrs Laboratory Tests Test 08/06/18 21:37 08/07/18 04:45 White Blood Count 6.5 # 5.7 Red Blood Count 4.82 # 4.24 Hemoglobin 13.6 # 11.9 L Hematocrit 42.8 # 38.5 Mean Corpuscular Volume 88.8 90.8 Mean Corpuscular Hemoglobin 28.2 L 28.1 L Mean Corpuscular Hemoglobin Concent 31.8 L 30.9 L Red Cell Distribution Width 16.4 H 16.5 H Platelet Count 326 # 238 # Mean Platelet Volume 10.0 9.7 Immature Granulocytes % 0.500 H 0.500 H Neutrophils % 66.7 63.5 Lymphocytes % 21.7 21.9 Monocytes % 9.8 12.0 H Eosinophils % 0.8 1.6 Basophils % 0.5 0.5 Nucleated Red Blood Cells % 0.0 0.0 Immature Granulocytes # 0.030 0.030 Neutrophils # 4.4 3.6 Lymphocytes # 1.4 1.2 Monocytes # 0.6 0.7 Eosinophils # 0.1 0.1 Basophils # 0.0 0.0 Nucleated Red Blood Cells # 0.0 0.0 Urine Color ALEXA Urine Clarity TURBID A Urine pH 5.0 Urine Specific [place] 1.024 Urine Ketones TRACE A Urine Nitrite NEGATIVE Urine Bilirubin 2+ H Urine Urobilinogen 2+ H Urine Leukocyte Esterase TRACE A Urine Microscopic RBC 0 Urine Microscopic WBC 20 H Urine Squamous Epithelial Cells MANY A Urine Renal Epithelial Cells MODERATE Urine Bacteria MODERATE Urine Hyaline Casts FEW A Urine Mucus FEW A Urine Hemoglobin NEGATIVE Urine Glucose NEGATIVE Urine Total Protein 1+ H Sodium Level 143 144 Potassium Level 3.5 3.9 Chloride Level 90 L 97 Carbon Dioxide Level 30 35 H Anion Gap 23 H 12 # Blood Urea Nitrogen 53 H 57 H Creatinine 4.27 H 4.11 H Est Glomerular Filtrat Rate mL/min 10 L 11 L Glucose Level 120 132 Calcium Level 9.6 8.7 Total Bilirubin 0.3 0.1 L Direct Bilirubin 0.00 0.00 Indirect Bilirubin 0.3 0.1 Aspartate Amino Transf (AST/SGOT) 38 33 Alanine Aminotransferase (ALT/SGPT) 48 44 Alkaline Phosphatase 112 81 Total Protein 8.2 H 6.8 # Albumin 4.6 3.7 Globulin 3.60 H 3.10 Albumin/Globulin Ratio 1.27 1.19 Lipase 264 Phosphorus Level 5.8 H Magnesium Level 2.1 Exam/Review of Systems Exam Vitals Vital Signs Date Temp Pulse Resp B/P (MAP) Pulse Ox O2 O2 Flow FiO2 Time Delivery Rate 08/07/18 98.5 76 17 122/59 98 Nasal 13:56 (80) Cannula 08/07/18 2.0 01:22 Intake and Output 08/06/18 08/06/18 08/07/18 1414:59 22:59 06:59 IntakeIntake Total 300 ml BalanceBalance 300 ml Results Results 24hrs Laboratory Tests Test 08/06/18 21:37 08/07/18 04:45 White Blood Count 6.5 # 5.7 Red Blood Count 4.82 # 4.24 Hemoglobin 13.6 # 11.9 L Hematocrit 42.8 # 38.5 Mean Corpuscular Volume 88.8 90.8 Mean Corpuscular Hemoglobin 28.2 L 28.1 L Mean Corpuscular Hemoglobin Concent 31.8 L 30.9 L Red Cell Distribution Width 16.4 H 16.5 H Platelet Count 326 # 238 # Mean Platelet Volume 10.0 9.7 Immature Granulocytes % 0.500 H 0.500 H Neutrophils % 66.7 63.5 Lymphocytes % 21.7 21.9 Monocytes % 9.8 12.0 H Eosinophils % 0.8 1.6 Basophils % 0.5 0.5 Nucleated Red Blood Cells % 0.0 0.0 Immature Granulocytes # 0.030 0.030 Neutrophils # 4.4 3.6 Lymphocytes # 1.4 1.2 Monocytes # 0.6 0.7 Eosinophils # 0.1 0.1 Basophils # 0.0 0.0 Nucleated Red Blood Cells # 0.0 0.0 Urine Color ALEXA Urine Clarity TURBID A Urine pH 5.0 Urine Specific [place] 1.024 Urine Ketones TRACE A Urine Nitrite NEGATIVE Urine Bilirubin 2+ H Urine Urobilinogen 2+ H Urine Leukocyte Esterase TRACE A Urine Microscopic RBC 0 Urine Microscopic WBC 20 H Urine Squamous Epithelial Cells MANY A Urine Renal Epithelial Cells MODERATE Urine Bacteria MODERATE Urine Hyaline Casts FEW A Urine Mucus FEW A Urine Hemoglobin NEGATIVE Urine Glucose NEGATIVE Urine Total Protein 1+ H Sodium Level 143 144 Potassium Level 3.5 3.9 Chloride Level 90 L 97 Carbon Dioxide Level 30 35 H Anion Gap 23 H 12 # Blood Urea Nitrogen 53 H 57 H Creatinine 4.27 H 4.11 H Est Glomerular Filtrat Rate mL/min 10 L 11 L Glucose Level 120 132 Calcium Level 9.6 8.7 Total Bilirubin 0.3 0.1 L Direct Bilirubin 0.00 0.00 Indirect Bilirubin 0.3 0.1 Aspartate Amino Transf (AST/SGOT) 38 33 Alanine Aminotransferase (ALT/SGPT) 48 44 Alkaline Phosphatase 112 81 Total Protein 8.2 H 6.8 # Albumin 4.6 3.7 Globulin 3.60 H 3.10 Albumin/Globulin Ratio 1.27 1.19 Lipase 264 Phosphorus Level 5.8 H Magnesium Level 2.1 Medications Medication Current Medications Dextrose/Sodium Chloride 1,000 ml @ 100 mls/hr Q10H IV Last administered on 08/07/18at 13:18; Admin Dose 100 MLS/HR; Start 08/07/18 at 02:47 IV Flush (NS 3 ml) 3 ml PER PROTOCOL IV ; Start 08/07/18 at 03:00 Ondansetron HCl (Zofran Inj) 4 mg Q6H PRN IV NAUSEA/VOMITING; Start 08/07/18 at 03:00 Morphine Sulfate (morphine) 2 mg Q4H PRN IV .SEVERE PAIN 7-10; Start 08/07/18 at 03:00 Famotidine (Pepcid Iv) 20 mg DAILY IV Last administered on 08/07/18at 09:30; Admin Dose 20 MG; Start 08/07/18 at 09:00 Albuterol/ Ipratropium (Duoneb) 3 ml Q2H RESP THERAPY PRN HHN SHORTNESS OF BREATH; Start 08/07/18 at 03:00 Lorazepam (Ativan) 1 mg Q4H PRN IV anxiety; Start 08/07/18 at 03:00 Ciprofloxacin/ Dextrose 100 ml @ 200 mls/hr Q12@0600,1800 IV* Last administered on 08/07/18at 03:44; Admin Dose 200 MLS/HR; Start 08/07/18 at 04:00 Influenza Virus Vaccine Quadrival (Fluzone) 0.5 ml ONCE ONCE IM* ; Start 08/09/18 at 10:00; Stop 08/09/18 at 10:01 Miscellaneous Information Patients own medicat... BID@ XX ; Start 08/07/18 at 16:00 ARNOLDO KIM NP Aug 07, 2018 16:43
--- NOTE | 2018-08-07 18:14 | CONS ---
DATE OF ADMISSION: 08/07/2018 DATE OF CONSULTATION: 08/07/2018 TYPE OF CONSULTATION: Nephrology. REASON FOR CONSULTATION: Acute kidney injury. PHYSICIAN REQUESTING CONSULT: Rogelio Cordova NP HISTORY OF PRESENT ILLNESS: This is a 63-year-old female with a past medical history of CKD with pre vious baseline creatinine around 1.5 mg/dL, history of obesity, history of ovarian cancer, history of breast cancer, who is being followed by oncologist at [facility], who presents to [facility] with abdominal pain, nausea and vomiting. The patient upon arrival to [facility] emergency room had a CT scan of abdomen and pelvis which showed evidence of high-grade bowel obstr uction. The patient was previously admitted at [facility] 5 days ago with similar presentation. The patient was managed conservatively with resolution of her bowel obstruction. She now presents again with similar presentation of bowel obstruction, nausea and vomiting. In terms of the patient's renal history, previously the patient has underlying CKD with previous base line creatinine around 1.5 mg/dL. On admission, the patient has a creatinine over 4 mg/dL. The angelica ent also during this time had nausea, vomiting as described above. The patient denied any NSAID use. Denied any hemoptysis. Denied any rashes. Denied any hematuria. PAST MEDICAL HISTORY: History of CKD, history of breast cancer, history of ovarian cancer. FAMILY HISTORY: No family history of kidney disease. SOCIAL HISTORY: Does not drink, smoke or do drugs. MEDICATIONS: Have been reviewed. PAST SURGICAL HISTORY: Has been reviewed. ALLERGIES: THE PATIENT IS ALLERGIC TO PENICILLIN. REVIEW OF SYSTEMS: A 14-point review of systems conducted. Pertinent positives stated in HPI, other spence negative. PHYSICAL EXAMINATION: VITAL SIGNS: Blood pressure is 122/59, respirations 17, pulse 76, temperature 98.5. HEENT: Head is normocephalic. NECK: Supple. HEART: Regular rate. LUNGS: Show diminished breath sounds at the base. ABDOMEN: Soft, positive tenderness to palpation. EXTREMITIES: Negative for clubbing, cyanosis. No edema. DERMATOLOGIC: No rashes. MUSCULOSKELETAL: No joint effusion. NEUROLOGIC: No focal deficits. LABORATORY DATA: Show sodium 144, potassium 3.9, BUN 57, creatinine 4.11. White count 5.7, hemoglob in 11.9, platelet count is 238. ASSESSMENT AND PLAN: This is a 62-year-old female presenting with: 1. Nonoliguric acute kidney injury on top of chronic kidney disease with previous baseline creatinin e of 1.5 mg/dL. Etiology of her current acute kidney injury is likely secondary to hemodynamics, vol ume depletion. The patient's urinalysis shows no active sediment, positive hyalin casts and FENa valerie roximately 1%, protein creatinine ratio less than 100 mg/dL. These findings can be consistent with p rerenal etiology. Lower suspicion for acute glomerulonephritis given patient's clinical presentation . We would however rule out obstruction by checking a renal ultrasound. We would also continue aggr essive IV hydration. We will increase rate of IV fluids to 125 mL an hour of half NS. Otherwise, co ntinue supportive care, renally dose meds, avoid nephrotoxins. 2. Mineral bone disorder. Monitor calcium and phosphorus levels. 3. Hypernatremia. Continue patient on hypotonic fluid. 4. Small-bowel obstruction. Etiology is unclear. This is secondary to adhesions versus malignancy. We will continue current medical management. The patient has NG tube in place for decompression. Consider surgery evaluation. 5. History of ovarian cancer. The patient is currently receiving chemotherapy. 6. Anxiety disorder. Continue current medical management. 7. Obesity. 8. Gastrointestinal and deep venous thrombosis prophylaxis. Thank you, Rogelio, for this very interesting consult. It will be a pleasure to follow the patient wi th you throughout the hospital course. Dictated By: SANDY CALL DO NR/NTS Conf#: [id number] DID#: [id number] CC: DERIC CHATTERJEE MD; DERIC HERNÁNDEZ MD;*End*
[2018-08-07 20:02] VITALS: BP 111/66; PULSE 80; RESP 18
[2018-08-07] MEDS: morphine 2 MG INJ IV PRN (21:59)
[2018-08-08 02:00] VITALS: BP 107/58; PULSE 72; RESP 18
[2018-08-08] MEDS: CIPROFLOXACIN 200 MG/D5W IVPB 100 ML IV* SCH (06:05)
[2018-08-08] MEDS: DEXTROSE 5%-0.45% NACL 1,000 ML IV SCH ×4 (06:08→21:40)
[2018-08-08] MEDS: morphine 2 MG INJ IV PRN ×3 (06:09→23:16)
[2018-08-08 07:49] VITALS: BP 115/69; PULSE 68; RESP 20
[2018-08-08] MEDS: FAMOTIDINE 20 MG INJ IV SCH (08:21)
--- NOTE | 2018-08-08 09:16 | PN ---
DATE: 08/08/2018 SUBJECTIVE: The patient is stable. No events overnight. The patient remains n.p.o. Urinary output has improved. No other events noted. OBJECTIVE: VITAL SIGNS: Blood pressure is 115/69, respiratory rate 20, pulse 68, temperature 97.7. HEENT: Head is normocephalic. NECK: Supple. HEART: Regular rate. LUNGS: Show diminished breath sounds at the base. ABDOMEN: Soft. Mild tenderness to palpation. No rebound or guarding. EXTREMITIES: Negative for clubbing, cyanosis, no edema. DERMATOLOGIC: No rashes. MUSCULOSKELETAL: No joint effusion. NEUROLOGIC: No change in exam. MEDICATIONS: Reviewed. LABORATORY DATA: Shows sodium 141, creatinine 2.5, BUN 37, creatinine 1.87. White count 4.3, hemogl obin 10.7, platelet count is 220. Urinalysis was reviewed. IMAGING: Renal ultrasound was reviewed, shows atrophic echogenic right kidney. ASSESSMENT AND PLAN: 1. Nonoliguric acute kidney injury on top of chronic kidney disease with previous baseline creatinin e of 1.5 mg/dL. Etiology of acute kidney injury is secondary to prerenal volume depletion. The angelica ent's renal function has improved with IV hydration. At this point, continue current treatment plans , supportive care, renally dose all meds, continue IV hydration. 2. Mineral bone disorder. Monitor calcium and phosphorus levels. 3. Hyponatremia, improved. Continue IV fluids. 4. Small-bowel obstruction. Etiology is unclear, possibly from adhesions, questionable malignancy. Continue medical management. Continue NG tube. Consider surgery evaluation. 5. History of ovarian cancer. The patient is currently receiving chemotherapy. 6. Anxiety disorder. Continue medical management. 7. Obesity. 8. Gastrointestinal and deep venous thrombosis prophylaxis. Dictated By: SANDY CALL DO NR/NTS Conf#: [id number] DID#: [id number] CC: DERIC CHATTERJEE MD; DERIC HERNÁNDEZ MD;*End*
[2018-08-08] MEDS ORDERED: IOHEXOL 300MG/ML 150 ML BTL ONE ×2 (11:37)
[2018-08-08 13:13] VITALS: BP 117/59; PULSE 76; RESP 20
--- NOTE | 2018-08-08 15:42 | PN ---
Date/Time of Note Date/Time of Note DATE: 08/08/18 TIME: 15:40 Assessment/Plan VTE Prophylaxis Risk score (from Ns)>0 risk: 5 SCD applied (from Ns): Yes Pharmacological prophylaxis: NA/contraindicated Pharm contraindication: surgical contra Lines/Catheters [facility]from [facility]): Saline Lock Assessment/Plan Hospital Course SUBJECTIVE: S/P small bowel series today. NGT still draining out fluid. OBJECTIVE: Physical Exam General: Obese, 63 year-old male lying in bed in no apparent distress. HEENT: Normocephalic, atraumatic. Eyes: Anicteric sclerae, conjunctivae clear. ENT: Nasal septum midline, oral mucosa is dry. Respiratory: Bilaterally clear breath sounds. No use of accessory muscles of respiration. No adventitious breath sounds. Cardiovascular: S1, S2 heard. Regular rate and rhythm. Abdomen: Distended. Surgical scars. Genitourinary: Deferred. Extremities: No cyanosis. Peripheral pulses palpable. Neurologic: Cranial nerves II through XII grossly intact. The patient is awake, alert, and oriented. Skin: Normal skin turgor. No skin rashes. Labs & Vitals per chart ASSESSMENT & PLAN 63-year-old female with comorbidities including chronic kidney disease, ovarian cancer currently getting chemotherapy at [facility], obesity, and recurrent small bowel obstructions. The patient came to the emergency room with chief complaint of abdominal pain with CT scan showing high-grade small bowel obstruction with a transition point along the distal lumen in the inferior right pelvis. Therefore, the patient was admitted to inpatient setting for further treatment and evaluation. 1. High-grade small bowel obstruction with a transition point along the distal ileum. -Continue NGT decompression. -Surgery has been consulted. -Continue pain control. 2. Chronic kidney disease. -Monitor BUN and creatinine closely. -Avoid nephrotoxic medications. -Nephrology consult. 3. History of ovarian cancer. -Undergoes chemotherapy at [facility]. 4. Remote history of breast cancer. 5. Anxiety disorder. -Resume anxiolytics once able to tolerate oral intake. 6. Positive urinalysis -Urinalysis inconclusive. -Stop antimicrobials. 7. Obesity. -BMI more than 34. 8. Fluids, electrolytes, and nutrition. -N.p.o. -IV fluids. 9. DVT prophylaxis -Bilateral SCDs. 10. Plan. -Continue NGT decompression. -Await surgical evaluation. Called Dr. Sanders on 08/08/2018 @1600. Updated the surgeon on the patient's sta tus. The surgeon will see the patient. The patient was seen in collaboration with Dr. Rosa. Result Diagram: 08/08/18 0533 08/08/18 0533 Results 24hrs Laboratory Tests Test 08/08/18 05:33 White Blood Count 4.3 #L Red Blood Count 3.74 L Hemoglobin 10.7 L Hematocrit 34.9 L Mean Corpuscular Volume 93.3 Mean Corpuscular Hemoglobin 28.6 L Mean Corpuscular Hemoglobin Concent 30.7 L Red Cell Distribution Width 16.1 H Platelet Count 220 Mean Platelet Volume 9.9 Immature Granulocytes % 0.200 Neutrophils % 64.0 Lymphocytes % 21.7 Monocytes % 12.0 H Eosinophils % 1.6 Basophils % 0.5 Nucleated Red Blood Cells % 0.0 Immature Granulocytes # 0.010 Neutrophils # 2.8 Lymphocytes # 0.9 Monocytes # 0.5 Eosinophils # 0.1 Basophils # 0.0 Nucleated Red Blood Cells # 0.0 Sodium Level 141 Potassium Level 3.5 Chloride Level 101 Carbon Dioxide Level 33 H Anion Gap 7 Blood Urea Nitrogen 37 #H Creatinine 1.87 #H Est Glomerular Filtrat Rate mL/min 27 L Glucose Level 129 Calcium Level 8.2 L Phosphorus Level 3.6 # Magnesium Level 2.1 Exam/Review of Systems Exam Vitals Vital Signs Date Temp Pulse Resp B/P (MAP) Pulse Ox O2 O2 Flow FiO2 Time Delivery Rate 08/08/18 2.0 15:38 08/08/18 98.4 76 20 117/59 97 13:13 (78) 08/08/18 Nasal 02:00 Cannula Intake and Output 08/07/18 08/07/18 08/08/18 1515:00 23:00 07:00 IntakeIntake Total 1000.0 ml 1000 ml OutputOutput Total 1100 ml 300 ml BalanceBalance -100.0 ml 700 ml Results Results 24hrs Laboratory Tests Test 08/08/18 05:33 White Blood Count 4.3 #L Red Blood Count 3.74 L Hemoglobin 10.7 L Hematocrit 34.9 L Mean Corpuscular Volume 93.3 Mean Corpuscular Hemoglobin 28.6 L Mean Corpuscular Hemoglobin Concent 30.7 L Red Cell Distribution Width 16.1 H Platelet Count 220 Mean Platelet Volume 9.9 Immature Granulocytes % 0.200 Neutrophils % 64.0 Lymphocytes % 21.7 Monocytes % 12.0 H Eosinophils % 1.6 Basophils % 0.5 Nucleated Red Blood Cells % 0.0 Immature Granulocytes # 0.010 Neutrophils # 2.8 Lymphocytes # 0.9 Monocytes # 0.5 Eosinophils # 0.1 Basophils # 0.0 Nucleated Red Blood Cells # 0.0 Sodium Level 141 Potassium Level 3.5 Chloride Level 101 Carbon Dioxide Level 33 H Anion Gap 7 Blood Urea Nitrogen 37 #H Creatinine 1.87 #H Est Glomerular Filtrat Rate mL/min 27 L Glucose Level 129 Calcium Level 8.2 L Phosphorus Level 3.6 # Magnesium Level 2.1 Medications Medication Current Medications Dextrose/Sodium Chloride 1,000 ml @ 125 mls/hr Q8H IV Last administered on 08/08/18at 06:08; Admin Dose 125 MLS/HR; Start 08/07/18 at 02:47 IV Flush (NS 3 ml) 3 ml PER PROTOCOL IV ; Start 08/07/18 at 03:00 Ondansetron HCl (Zofran Inj) 4 mg Q6H PRN IV NAUSEA/VOMITING; Start 08/07/18 at 03:00 Morphine Sulfate (morphine) 2 mg Q4H PRN IV .SEVERE PAIN 7-10 Last administered on 08/08/18at 13:34; Admin Dose 2 MG; Start 08/07/18 at 03:00 Famotidine (Pepcid Iv) 20 mg DAILY IV Last administered on 08/08/18at 08:21; Admin Dose 20 MG; Start 08/07/18 at 09:00 Albuterol/ Ipratropium (Duoneb) 3 ml Q2H RESP THERAPY PRN HHN SHORTNESS OF BREATH; Start 08/07/18 at 03:00 Lorazepam (Ativan) 1 mg Q4H PRN IV anxiety; Start 08/07/18 at 03:00 Ciprofloxacin/ Dextrose 100 ml @ 200 mls/hr Q12@0600,1800 IV* Last administered on 08/08/18at 06:05; Admin Dose 200 MLS/HR; Start 08/07/18 at 04:00 Influenza Virus Vaccine Quadrival (Fluzone) 0.5 ml ONCE ONCE IM* ; Start 08/09/18 at 10:00; Stop 08/09/18 at 10:01 Miscellaneous Information Patients own medicat... BID@ XX ; Start 08/07/18 at 16:00 ARNOLDO KIM NP Aug 08, 2018 15:42
--- NOTE | 2018-08-08 19:12 | PN ---
Date/Time of Note Date/Time of Note DATE: 08/08/18 TIME: 19:09 Assessment/Plan Lines/Catheters IV [facility]atheter Type (from [facility]): Saline Lock Assessment/Plan Assessment/Plan Patient with known ovarian cancer pro probably metastatic undergoing chemotherapy. Patient with a history of prior hysterectomy now presented with small bowel obstruction secondary to adhesions versus metastatic. Patient is currently comfortable however the small bowel obstruction is still not resolved. I discussed this case with Dr. Yuen we both agreed that observation is the best option for now. Subjective 24 Hr Interval Summary I was requested by Dr. Steve Sanders to see the patient as Coverage for Dr. Yuen. Patient is 63-year-old female with ovarian cancer with a history of hysterectomy in the past undergoing chemotherapy was admitted for recurrent small bowel obstruction. Patient is still with high NG tube output note passing gas. However patient does not complain of abdominal pain she is comfortable her vitals are stable. The results of the imaging study currently unavailable to me. According to Dr. Yuen the patient underwent CT scan previously but there is no report of this in the chart Exam/Review of Systems Vital Signs Vitals Vital Signs Date Temp Pulse Resp B/P (MAP) Pulse Ox O2 O2 Flow FiO2 Time Delivery Rate 08/08/18 2.0 15:38 08/08/18 98.4 76 20 117/59 97 13:13 (78) 08/08/18 Nasal 02:00 Cannula Intake and Output 08/07/18 08/07/18 08/08/18 1515:00 23:00 07:00 IntakeIntake Total 1000.0 ml 1000 ml OutputOutput Total 1100 ml 300 ml BalanceBalance -100.0 ml 700 ml Results Result Diagram: 08/08/18 0533 08/08/18 0533 LIV LEDESMA MD Aug 08, 2018 19:12
[2018-08-08 19:19] VITALS: BP 124/65; PULSE 82; RESP 18
[2018-08-09 01:29] VITALS: BP 110/56; PULSE 71; RESP 18
[2018-08-09] MEDS: DEXTROSE 5%-0.45% NACL 1,000 ML IV SCH ×4 (02:21→22:40)
--- NOTE | 2018-08-09 05:56 | PN ---
Date/Time of Note Date/Time of Note DATE: 08/09/18 TIME: 05:56 Assessment/Plan VTE Prophylaxis Risk score (from Ns)>0 risk: 3 SCD applied (from Ns): Yes Pharmacological prophylaxis: NA/contraindicated Pharm contraindication: surgical contra Lines/Catheters IV [facility]ter Type (from [facility]): Saline Lock Assessment/Plan Hospital Course SUBJECTIVE: Denies any abdominal pain. NGT still draining out fluid. OBJECTIVE: Physical Exam General: Obese, 63 year-old male lying in bed in no apparent distress. HEENT: Normocephalic, atraumatic. Eyes: Anicteric sclerae, conjunctivae clear. ENT: Nasal septum midline, oral mucosa is dry. Respiratory: Bilaterally clear breath sounds. No use of accessory muscles of respiration. No adventitious breath sounds. Cardiovascular: S1, S2 heard. Regular rate and rhythm. Abdomen: Distended. Surgical scars. Genitourinary: Deferred. Extremities: No cyanosis. Peripheral pulses palpable. Neurologic: Cranial nerves II through XII grossly intact. The patient is awake, alert, and oriented. Skin: Normal skin turgor. No skin rashes. Labs & Vitals per chart ASSESSMENT & PLAN 63-year-old female with comorbidities including chronic kidney disease, ovarian cancer currently getting chemotherapy at [facility], obesity, and recurrent small bowel obstructions. The patient came to the emergency room with chief complaint of abdominal pain with CT scan showing high-grade small bowel obstruction with a transition point along the distal lumen in the inferior right pelvis. Therefore, the patient was admitted to inpatient setting for further treatment and evaluation. 1. High-grade small bowel obstruction with a transition point along the distal ileum. -Continue NGT decompression. -Surgery following. -Continue pain control. 2. Chronic kidney disease. -Monitor BUN and creatinine closely. -Avoid nephrotoxic medications. -Nephrology consult. 3. History of ovarian cancer. -Undergoes chemotherapy at [facility]. 4. Remote history of breast cancer. -S/P B/L mastectomy. 5. Anxiety disorder. -Resume anxiolytics once able to tolerate oral intake. 6. Positive urinalysis -Urinalysis inconclusive. -Stop antimicrobials. 7. Obesity. -BMI more than 34. 8. Fluids, electrolytes, and nutrition. -N.p.o. -IV fluids. 9. DVT prophylaxis -Bilateral SCDs. 10. Plan. -Continue NGT decompression. -Await further surgical inputs. The patient was seen in collaboration with Dr. Rosa. Result Diagram: 08/08/1853208/08/18532 Exam/Review of Systems Exam Vitals Vital Signs Date Temp Pulse Resp B/P (MAP) Pulse Ox O2 O2 Flow FiO2 Time Delivery Rate 08/09/18 98.3 71 18 110/56 98 01:29 (74) 08/08/18 2.0 15:38 08/08/18 Nasal 02:00 Cannula Intake and Output 08/08/18 08/08/18 08/09/18 1515:00 23:00 07:00 IntakeIntake Total 1375 ml OutputOutput Total 950 ml 1150 ml BalanceBalance -950 ml -1150 ml 1375 ml Medications Medication Current Medications Dextrose/Sodium Chloride 1,000 ml @ 125 mls/hr Q8H IV Last administered on 08/09/18at 02:21; Admin Dose 125 MLS/HR; Start 08/07/18 at 02:47 IV Flush (NS 3 ml) 3 ml PER PROTOCOL IV ; Start 08/07/18 at 03:00 Ondansetron HCl (Zofran Inj) 4 mg Q6H PRN IV NAUSEA/VOMITING; Start 08/07/18 at 03:00 Morphine Sulfate (morphine) 2 mg Q4H PRN IV .SEVERE PAIN 7-10 Last administered on 08/08/18at 23:16; Admin Dose 2 MG; Start 08/07/18 at 03:00 Famotidine (Pepcid Iv) 20 mg DAILY IV Last administered on 08/08/18at 08:21; Admin Dose 20 MG; Start 08/07/18 at 09:00 Albuterol/ Ipratropium (Duoneb) 3 ml Q2H RESP THERAPY PRN HHN SHORTNESS OF BREATH; Start 08/07/18 at 03:00 Lorazepam (Ativan) 1 mg Q4H PRN IV anxiety; Start 08/07/18 at 03:00 Influenza Virus Vaccine Quadrival (Fluzone) 0.5 ml ONCE ONCE IM* ; Start 08/09/18 at 10:00; Stop 08/09/18 at 10:01 Miscellaneous Information Patients own medicat... BID@10,16 XX ; Start 08/07/18 at 16:00 ARNOLDO KIM NP 20, 2019 05:56
[2018-08-09 07:52] VITALS: BP 118/58; PULSE 86; RESP 18
[2018-08-09] MEDS: FAMOTIDINE 20 MG INJ IV SCH (08:14)
--- NOTE | 2018-08-09 09:29 | PN ---
DATE: 08/09/2018 SUBJECTIVE: The patient is stable, no events overnight. OBJECTIVE: VITAL SIGNS: Blood pressure is 118/58, respirations 18, pulse 86, temperature 98.4. HEENT: Head is normocephalic. NECK: Supple. HEART: Regular rate. LUNGS: Show diminished breath sounds at the base. ABDOMEN: Soft, nontender to palpation without rebound or guarding. EXTREMITIES: Negative for clubbing, cyanosis, no edema. DERMATOLOGIC: No rashes. MUSCULOSKELETAL: No joint effusion. NEUROLOGIC: No change in exam. MEDICATIONS: Reviewed. LABORATORY DATA: Shows sodium 143, BUN 19, creatinine 1.25. White count 12.3, hemoglobin 10.3, and platelet count is 99. ASSESSMENT AND PLAN: 1. Nonoliguric acute kidney injury on top of chronic kidney disease with previous baseline creatinin e of 1.5 mg/dL. Etiology of current acute kidney injury is secondary to volume depletion. Renal fun ction has improved with IV hydration. We will deescalate IV fluids, continue current treatment plans , supportive care, renally dose all medicines. 2. Mineral bone disorder. Continue to monitor calcium and phosphorus levels. 3. Hypernatremia, improved. 4. Small-bowel obstruction. Etiology may be secondary to metastatic disease versus adhesions. Cont inue medical management. Continue NG tube. Follow up with surgery. 5. History of ovarian cancer. Continue medical management. 6. Anxiety disorder. 7. Gastrointestinal and deep vein thrombosis prophylaxis. 8. Obesity. Dictated By: SANDY CALL DO NR/NTS Conf#: [id number] DID#: [id number] CC: DERIC HERNÁNDEZ MD; DERIC CHATTERJEE MD;*EndCC*
[2018-08-09] MEDS ORDERED: INFLUENZA VIRUS VACCINE 0.5 ML (DISPENSING) IM* ONE (10:00)
[2018-08-09 13:38] VITALS: BP 126/68; PULSE 91; RESP 16
[2018-08-09 19:47] VITALS: BP 136/66; PULSE 83; RESP 18
[2018-08-09] MEDS: morphine 2 MG INJ IV PRN (22:45)
[2018-08-10 01:15] VITALS: BP 114/58; PULSE 75; RESP 18
[2018-08-10 07:39] VITALS: BP 122/60; PULSE 71; RESP 18
[2018-08-10] MEDS: DEXTROSE 5%-0.45% NACL 1,000 ML IV SCH ×2 (08:56→20:59)
--- NOTE | 2018-08-10 09:13 | PN ---
DATE: 08/10/2018 SUBJECTIVE: The patient is stable. No events overnight. Patient's NG tube is still in place. Urina ry output has been adequate. OBJECTIVE: VITAL SIGNS: Blood pressure is 122/60, pulse 71, respiration 18, temperature 98.7. HEENT: Head is normocephalic. NECK: Supple. HEART: Regular rate. LUNGS: Show diminished breath sounds at base. ABDOMEN: Soft, extend, no rebound or guarding. EXTREMITIES: Negative for clubbing, cyanosis, no edema. DERMATOLOGIC: No rashes. MUSCULOSKELETAL: No joint effusion. NEUROLOGIC: No change in exam. MEDICATIONS: Reviewed. LABORATORY DATA: From 08/10/2018 was reviewed. The patient's potassium 3.3, BUN 12, creatinine 1.15 . ASSESSMENT AND PLAN: 1. Nonoliguric acute kidney injury on top of chronic kidney disease with previous baseline creatinin e of 1.5 mg/dL. Etiology of NIKUNJ is secondary to volume depletion. Renal function is improving. Con tinue current treatment plan, supportive care, renally dose all meds, continue IV fluids. 2. Hypokalemia. We will replete with potassium chloride. 3. Mineral bone disorder, monitor calcium and phosphorus levels. 4. Hyponatremia, resolved. 5. Small-bowel obstruction. Etiology may be secondary to metastatic disease versus adhesions. Cont inue medical management. Continue NG tube, monitor closely. 6. History of ovarian cancer. 7. Anxiety disorder. 8. Obesity. 9. Gastrointestinal and deep vein thrombosis prophylaxis. Dictated By: SANDY CALL DO NR/NTS Conf#: [id number] DID#: [id number] CC: DERIC HERNÁNDEZ MD; DERIC CHATTERJEE MD;*EndCC*
[2018-08-10] MEDS: POTASSIUM CHLORIDE 100 ML IVPB SCH ×2 (09:58→12:34)
[2018-08-10] MEDS: FAMOTIDINE 20 MG INJ IV SCH (09:58)
[2018-08-10 13:47] VITALS: BP 119/68; PULSE 91; RESP 18
--- NOTE | 2018-08-10 14:48 | PN ---
Date/Time of Note Date/Time of Note DATE: 08/10/18 TIME: 14:47 Assessment/Plan VTE Prophylaxis Risk score (from Ns)>0 risk: 3 SCD applied (from Ns): Yes Pharmacological prophylaxis: NA/contraindicated Pharm contraindication: surgical contra Lines/Catheters [facility]from [facility] Peripheral IV Assessment/Plan Hospital Course SUBJECTIVE: Denies any abdominal pain. NGT still draining out fluid. OBJECTIVE: Physical Exam General: Obese, 63 year-old male lying in bed in no apparent distress. HEENT: Normocephalic, atraumatic. Eyes: Anicteric sclerae, conjunctivae clear. ENT: Nasal septum midline, oral mucosa is dry. Respiratory: Bilaterally clear breath sounds. No use of accessory muscles of respiration. No adventitious breath sounds. Cardiovascular: S1, S2 heard. Regular rate and rhythm. Abdomen: Distended. Surgical scars. Genitourinary: Deferred. Extremities: No cyanosis. Peripheral pulses palpable. Neurologic: Cranial nerves II through XII grossly intact. The patient is awake, alert, and oriented. Skin: Normal skin turgor. No skin rashes. Labs & Vitals per chart ASSESSMENT & PLAN 63-year-old female with comorbidities including chronic kidney disease, ovarian cancer currently getting chemotherapy at [facility], obesity, and recurrent small bowel obstructions. The patient came to the emergency room with chief complaint of abdominal pain with CT scan showing high-grade small bowel obstruction with a transition point along the distal lumen in the inferior right pelvis. Therefore, the patient was admitted to inpatient setting for further treatment and evaluation. 1. High-grade small bowel obstruction with a transition point along the distal ileum. -Continue NGT decompression. -Surgery following. -Continue pain control. 2. Chronic kidney disease. -Monitor BUN and creatinine closely. -Avoid nephrotoxic medications. -Nephrology consult. 3. History of ovarian cancer. -Undergoes chemotherapy at [facility]. 4. Remote history of breast cancer. -S/P B/L mastectomy. 5. Anxiety disorder. -Resume anxiolytics once able to tolerate oral intake. 6. Positive urinalysis -Urinalysis inconclusive. 7. Obesity. -BMI more than 34. 8. Fluids, electrolytes, and nutrition. -N.p.o. -IV fluids. 9. DVT prophylaxis -Bilateral SCDs. 10. Plan. -Continue NGT decompression. -Await further surgical inputs. -SBFT ordered. The patient was seen in collaboration with Dr. Rosa. Result Diagram: 08/10/181 08/10/18 0441 Results 24hrs Laboratory Tests Test 08/10/18 04:41 White Blood Count 4.7 L Red Blood Count 3.77 L Hemoglobin 10.5 L Hematocrit 34.7 L Mean Corpuscular Volume 92.0 Mean Corpuscular Hemoglobin 27.9 L Mean Corpuscular Hemoglobin Concent 30.3 L Red Cell Distribution Width 15.9 H Platelet Count 231 Mean Platelet Volume 9.8 Immature Granulocytes % 0.200 Neutrophils % 59.3 Lymphocytes % 26.7 Monocytes % 11.5 H Eosinophils % 1.9 Basophils % 0.4 Nucleated Red Blood Cells % 0.0 Immature Granulocytes # 0.010 Neutrophils # 2.8 Lymphocytes # 1.3 Monocytes # 0.5 Eosinophils # 0.1 Basophils # 0.0 Nucleated Red Blood Cells # 0.0 Sodium Level 144 Potassium Level 3.3 L Chloride Level 102 Carbon Dioxide Level 33 H Anion Gap 9 Blood Urea Nitrogen 12 Creatinine 1.15 H Est Glomerular Filtrat Rate mL/min 48 L Glucose Level 105 Calcium Level 8.4 Phosphorus Level 3.0 Magnesium Level 1.8 Exam/Review of Systems Exam Vitals Vital Signs Date Temp Pulse Resp B/P (MAP) Pulse Ox O2 O2 Flow FiO2 Time Delivery Rate 08/10/18 98.7 91 18 119/68 95 13:47 (85) 08/10/18 Room Air 07:39 08/10/18 2.0 01:40 Intake and Output 08/09/18 08/09/18 08/10/18 1515:00 23:00 07:00 IntakeIntake Total 625 ml 1000 ml 700 ml OutputOutput Total 400 ml 800 ml 375 ml BalanceBalance 225 ml 200 ml 325 ml Results Results 24hrs Laboratory Tests Test 08/10/18 04:41 White Blood Count 4.7 L Red Blood Count 3.77 L Hemoglobin 10.5 L Hematocrit 34.7 L Mean Corpuscular Volume 92.0 Mean Corpuscular Hemoglobin 27.9 L Mean Corpuscular Hemoglobin Concent 30.3 L Red Cell Distribution Width 15.9 H Platelet Count 231 Mean Platelet Volume 9.8 Immature Granulocytes % 0.200 Neutrophils % 59.3 Lymphocytes % 26.7 Monocytes % 11.5 H Eosinophils % 1.9 Basophils % 0.4 Nucleated Red Blood Cells % 0.0 Immature Granulocytes # 0.010 Neutrophils # 2.8 Lymphocytes # 1.3 Monocytes # 0.5 Eosinophils # 0.1 Basophils # 0.0 Nucleated Red Blood Cells # 0.0 Sodium Level 144 Potassium Level 3.3 L Chloride Level 102 Carbon Dioxide Level 33 H Anion Gap 9 Blood Urea Nitrogen 12 Creatinine 1.15 H Est Glomerular Filtrat Rate mL/min 48 L Glucose Level 105 Calcium Level 8.4 Phosphorus Level 3.0 Magnesium Level 1.8 Medications Medication Current Medications Dextrose/Sodium Chloride 1,000 ml @ 100 mls/hr Q10H IV Last administered on 08/10/18 08:56; Admin Dose 100 MLS/HR; Start 08/07/18 at 02:47 IV Flush (NS 3 ml) 3 ml PER PROTOCOL IV ; Start 08/07/18 at 03:00 Ondansetron HCl (Zofran Inj) 4 mg Q6H PRN IV NAUSEA/VOMITING Last administered on 08/09/18 22:52; Admin Dose 4 MG; Start 08/07/18 at 03:00 Morphine Sulfate (morphine) 2 mg Q4H PRN IV .SEVERE PAIN 7-10 Last administered on 08/09/18 22:45; Admin Dose 2 MG; Start 08/07/18 at 03:00 Famotidine (Pepcid Iv) 20 mg DAILY IV Last administered on 08/10/18 09:58; Admin Dose 20 MG; Start 08/07/18 at 09:00 Albuterol/ Ipratropium (Duoneb) 3 ml Q2H RESP THERAPY PRN HHN SHORTNESS OF BREATH; Start 08/07/18 at 03:00 Lorazepam (Ativan) 1 mg Q4H PRN IV anxiety; Start 08/07/18 at 03:00 Miscellaneous Information Patients own medicat... BID@10 XX ; Start 08/07/18 at 16:00 ARNOLDO KIM NP Aug 10, 2018 14:48
[2018-08-10] MEDS ORDERED: DIATR MEGLU/DIATRIZOATE SODIUM 120 ML BTL ONE (15:03)
[2018-08-10 20:00] VITALS: BP 138/75; PULSE 90; RESP 18
[2018-08-10] MEDS: morphine 2 MG INJ IV PRN (22:41)
[2018-08-11 02:00] VITALS: BP 128/66; PULSE 88; RESP 18
[2018-08-11] MEDS: DEXTROSE 5%-0.45% NACL 1,000 ML IV SCH ×3 (05:20→14:10)
[2018-08-11 07:48] VITALS: BP 135/69; PULSE 80; RESP 18
--- NOTE | 2018-08-11 09:09 | PN ---
DATE: 08/11/2018 SUBJECTIVE: The patient is stable. No events overnight. The patient continues to have NG tube dysf unction. No other events noted. OBJECTIVE: VITAL SIGNS: Blood pressure is 135/69, respirations 18, pulse 80, temperature 98.6. HEENT: Head is normocephalic. NECK: Supple. HEART: Regular rate. LUNGS: Show diminished breath sounds at the base. ABDOMEN: Soft, nontender to palpation. No rebound or guarding. EXTREMITIES: Negative for clubbing, cyanosis, no edema. DERMATOLOGIC: No rashes. MUSCULOSKELETAL: No joint effusion. NEUROLOGIC: No change in exam. MEDICATIONS: Reviewed. LABORATORY DATA: From 08/10/2018 was reviewed. The patient has a sodium 145, BUN 12. ASSESSMENT AND PLAN: 1. Nonoliguric acute kidney injury on top of chronic kidney disease with previous baseline creatinin e of around 1.15 mg/dL. Etiology of acute kidney injury is secondary to volume depletion. Renal fun ction has improved, appears to be stabilized. Continue current treatment plan, supportive care and r enally dose all medicines and IV fluids. 2. Hypokalemia. Continue to monitor and replete. 3. Hypernatremia. Etiology is secondary to insensible losses. We will increase rate of hypertonic fluids and monitor. 4. Mineral bone disorder. Continue to monitor calcium and phosphorus levels. 5. Small bowel obstruction. Etiology may be secondary to metastatic disease. Continue to monitor. Follow up with general surgery. The patient's NG tube is in place. 6. History of ovarian cancer. 7. Anxiety disorder. 8. Obesity. 9. Gastrointestinal and deep vein thrombosis prophylaxis. Dictated By: SANDY CALL DO NR/NTS Conf#: [id number] DID#: [id number] CC: DERIC HERNÁNDEZ MD; DERIC CHATTERJEE MD;*EndCC*
[2018-08-11] MEDS: FAMOTIDINE 20 MG INJ IV SCH (09:18)
[2018-08-11] MEDS: METOCLOPRAMIDE 10 MG INJ IV SCH ×3 (12:51→23:20)
--- NOTE | 2018-08-11 13:35 | PN ---
Date/Time of Note Date/Time of Note DATE: 08/11/18 TIME: 13:34 Assessment/Plan VTE Prophylaxis Risk score (from Ns)>0 risk: 3 SCD applied (from Ns): Yes Pharmacological prophylaxis: NA/contraindicated Pharm contraindication: other Lines/Catheters IV [facility]ter Type (from [facility]): Peripheral IV Assessment/Plan Hospital Course SUBJECTIVE: Denies any abdominal pain. NGT decompression was withheld and the patient was started on a clear liquid diet today. So far, the patient is tolerating this well. The OBJECTIVE: Physical Exam General: Obese, 63 year-old male lying in bed in no apparent distress. HEENT: Normocephalic, atraumatic. Eyes: Anicteric sclerae, conjunctivae clear. ENT: Nasal septum midline, oral mucosa is dry. Respiratory: Bilaterally clear breath sounds. No use of accessory muscles of respiration. No adventitious breath sounds. Cardiovascular: S1, S2 heard. Regular rate and rhythm. Abdomen: Distended. Surgical scars. Genitourinary: Deferred. Extremities: No cyanosis. Peripheral pulses palpable. Neurologic: Cranial nerves II through XII grossly intact. The patient is awake, alert, and oriented. Skin: Normal skin turgor. No skin rashes. Labs & Vitals per chart ASSESSMENT & PLAN 63-year-old female with comorbidities including chronic kidney disease, ovarian cancer currently getting chemotherapy at [facility], obesity, and recurrent small bowel obstructions. The patient came to the emergency room with chief complaint of abdominal pain with CT scan showing high-grade small bowel obstruction with a transition point along the distal lumen in the inferior right pelvis. Therefore, the patient was admitted to inpatient setting for further treatment and evaluation. 1. High-grade small bowel obstruction with a transition point along the distal ileum. -Small bowel follow-through from 08/10/2018 showing no evidence of any small bowel obstruction. -The patient was started on a clear liquid diet from 08/11/2018. NGT has been clamped. -Surgery following. 2. Chronic kidney disease. -Monitor BUN and creatinine closely. -Avoid nephrotoxic medications. -Nephrology following. 3. History of ovarian cancer. -Undergoes chemotherapy at [facility]. 4. Remote history of breast cancer. -S/P B/L mastectomy. 5. Anxiety disorder. -Continue PRN anxiolytics. 6. Positive urinalysis -Urinalysis inconclusive. 7. Obesity. -BMI more than 34. 8. Fluids, electrolytes, and nutrition. -Clear liquids -IV fluids. 9. DVT prophylaxis -Bilateral SCDs. 10. Plan. -Continue clear liquids. -Advance diet if able to tolerate clear liquids. The patient was seen in collaboration with Dr. Rosa. Result Diagram: 08/10/18 0441 08/11/18 0443 Results 24hrs Laboratory Tests Test 08/11/18 04:43 Sodium Level 145 H Potassium Level 3.6 Chloride Level 106 Carbon Dioxide Level 31 Anion Gap 8 Blood Urea Nitrogen 12 Creatinine 1.14 H Est Glomerular Filtrat Rate mL/min 48 L Glucose Level 108 Calcium Level 8.6 Phosphorus Level 2.7 Magnesium Level 1.7 Exam/Review of Systems Exam Vitals Vital Signs Date Temp Pulse Resp B/P (MAP) Pulse Ox O2 O2 Flow FiO2 Time Delivery Rate 08/11/18 98.6 80 18 135/69 94 Room Air 07:48 (91) 08/11/18 2.0 00:47 Intake and Output 08/10/18 08/10/18 08/11/18 1515:00 23:00 07:00 IntakeIntake Total 500 ml 300 ml 700 ml OutputOutput Total 500 ml 1000 ml 800 ml BalanceBalance 0 ml -700 ml -100 ml Results Results 24hrs Laboratory Tests Test 08/11/18 04:43 Sodium Level 145 H Potassium Level 3.6 Chloride Level 106 Carbon Dioxide Level 31 Anion Gap 8 Blood Urea Nitrogen 12 Creatinine 1.14 H Est Glomerular Filtrat Rate mL/min 48 L Glucose Level 108 Calcium Level 8.6 Phosphorus Level 2.7 Magnesium Level 1.7 Medications Medication Current Medications Dextrose/Sodium Chloride 1,000 ml @ 125 mls/hr Q8H IV Last administered on 08/11/18at 05:20; Admin Dose 100 MLS/HR; Start 08/07/18 at 02:47 IV Flush (NS 3 ml) 3 ml PER PROTOCOL IV ; Start 08/07/18 at 03:00 Ondansetron HCl (Zofran Inj) 4 mg Q6H PRN IV NAUSEA/VOMITING Last administered on 08/09/18at 22:52; Admin Dose 4 MG; Start 08/07/18 at 03:00 Morphine Sulfate (morphine) 2 mg Q4H PRN IV .SEVERE PAIN 7-10 Last administered on 08/10/18at 22:41; Admin Dose 2 MG; Start 08/07/18 at 03:00 Famotidine (Pepcid Iv) 20 mg DAILY IV Last administered on 08/11/18at 09:18; Ad min Dose 20 MG; Start 08/07/18 at 09:00 Albuterol/ Ipratropium (Duoneb) 3 ml Q2H RESP THERAPY PRN HHN SHORTNESS OF BREATH; Start 08/07/18 at 03:00 Lorazepam (Ativan) 1 mg Q4H PRN IV anxiety; Start 08/07/18 at 03:00 Miscellaneous Information Patients own medicat... BID@10,16 XX ; Start 08/07/18 at 16:00 Metoclopramide HCl (Reglan) 5 mg Q6 IV Last administered on 08/11/18at 12:51; Admin Dose 5 MG; Start 08/11/18 at 12:00 ARNOLDO KIM NP Aug 11, 2018 13:35
[2018-08-11 13:57] VITALS: BP 133/76; PULSE 80; RESP 18
[2018-08-11 20:22] VITALS: BP 150/74; PULSE 87; RESP 18
[2018-08-11] MEDS: morphine 2 MG INJ IV PRN (23:20)
[2018-08-12] MEDS: DEXTROSE 5%-0.45% NACL 1,000 ML IV SCH ×2 (01:36→05:37)
[2018-08-12 02:07] VITALS: BP 142/70; PULSE 88; RESP 17
[2018-08-12] MEDS: METOCLOPRAMIDE 10 MG INJ IV SCH ×4 (05:57→23:23)
[2018-08-12 08:18] VITALS: BP 126/69; PULSE 84; RESP 18
[2018-08-12] MEDS ORDERED: POTASSIUM CHLORIDE (SR) 20 MEQ TAB PO STA (08:43)
[2018-08-12] MEDS: FAMOTIDINE 20 MG INJ IV SCH (09:18)
--- NOTE | 2018-08-12 09:42 | PN ---
DATE: 08/12/2018 SUBJECTIVE: The patient is stable, no events overnight. The patient is currently tolerating p.o. cl ear liquids. OBJECTIVE: VITAL SIGNS: Blood pressure is 126/69, respirations 18, pulse 84, temperature is 99.5. HEENT: Head is normocephalic. NECK: Supple. HEART: Regular rate. LUNGS: Show diminished breath sounds at the base. ABDOMEN: Soft, nontender to palpation without rebound or guarding. EXTREMITIES: Negative for clubbing, cyanosis, no edema. DERMATOLOGIC: No rashes. MUSCULOSKELETAL: No joint effusion. NEUROLOGIC: No change in exam. MEDICATIONS: Reviewed. LABORATORY DATA: From 08/12/2018 was reviewed. The patient has potassium 2.4, magnesium 1.4. ASSESSMENT AND PLAN: 1. Nonoliguric acute kidney injury on top of chronic kidney disease with previous baseline creatinin e of 1.5 mg/dL. Etiology of acute kidney injury is secondary to volume depletion. Renal function is improved. Continue current treatment plan, supportive care, renally dose all medicines. 2. Hypokalemia and hypomagnesemia. We will replete. Continue to monitor. 3. Hypernatremia, improved. Continue to encourage free water intake. 4. Mineral bone disorder, monitor calcium and phosphorus levels. 5. Small bowel obstruction. Continue medical management. Follow up with general surgery. The angelica ent's NG tube was removed. 6. History of ovarian cancer. 7. Anxiety disorder. 8. Obesity. 9. Gastrointestinal and deep vein thrombosis prophylaxis. Dictated By: SANDY CALL DO NR/NTS Conf#: [id number] DID#: [id number] CC: DERIC HERNÁNDEZ MD; DERIC CHATTERJEE MD;*EndCC*
[2018-08-12] MEDS ORDERED: MAGNESIUM SULFATE 2 GM/50 ML 50 ML IVPB ONE (10:00)
--- NOTE | 2018-08-12 13:09 | PN ---
Date/Time of Note Date/Time of Note DATE: 08/12/18 TIME: 13:08 Assessment/Plan VTE Prophylaxis Risk score (from Ns)>0 risk: 3 SCD applied (from Nsg): Yes Pharmacological prophylaxis: NA/contraindicated Pharm contraindication: low risk/ambulating Lines/C[facility]ters [facility] IV Assessment/Plan Hospital Course SUBJECTIVE: Denies any abdominal pain. Tolerating clear liquids. OBJECTIVE: Physical Exam General: Obese, 63 year-old male lying in bed in no apparent distress. HEENT: Normocephalic, atraumatic. Eyes: Anicteric sclerae, conjunctivae clear. ENT: Nasal septum midline, oral mucosa is dry. Respiratory: Bilaterally clear breath sounds. No use of accessory muscles of respiration. No adventitious breath sounds. Cardiovascular: S1, S2 heard. Regular rate and rhythm. Abdomen: Distended. Surgical scars. Genitourinary: Deferred. Extremities: No cyanosis. Peripheral pulses palpable. Neurologic: Cranial nerves II through XII grossly intact. The patient is awake, alert, and oriented. Skin: Normal skin turgor. No skin rashes. Labs & Vitals per chart ASSESSMENT & PLAN 63-year-old female with comorbidities including chronic kidney disease, ovarian cancer currently getting chemotherapy at [facility], obesity, and recurrent small bowel obstructions. The patient came to the emergency room with chief complaint of abdominal pain with CT scan showing high-grade small bowel obstruction with a transition point along the distal lumen in the inferior right pelvis. Therefore, the patient was admitted to inpatient setting for further treatment and evaluation. 1. High-grade small bowel obstruction with a transition point along the distal ileum. -Small bowel follow-through from 08/10/2018 showing no evidence of any small bowel obstruction. -The patient was started on a clear liquid diet from 08/11/2018. NGT has been clamped and discontinued on 08/11/2018. -Will advance the diet to soft diet. -Surgery following. 2. Chronic kidney disease. -Monitor BUN and creatinine closely. -Avoid nephrotoxic medications. -Nephrology following. 3. History of ovarian cancer. -Undergoes chemotherapy at [facility]. 4. Remote history of breast cancer. -S/P B/L mastectomy. 5. Anxiety disorder. -Continue PRN anxiolytics. 6. Positive urinalysis -Urinalysis inconclusive. 7. Obesity. -BMI more than 34. 8. Fluids, electrolytes, and nutrition. -Clear liquids. -Advance her diet. 9. DVT prophylaxis -Bilateral SCDs. 10. Plan. -Advance the diet. -Add probiotics. -Replete electrolytes. The patient was seen in collaboration with Dr. Rosa. Result Diagram: 08/12/1819 08/12/1819 Results 24hrs Laboratory Tests Test 08/12/18 06:19 White Blood Count 5.2 Red Blood Count 3.88 L Hemoglobin 11.1 L Hematocrit 35.3 L Mean Corpuscular Volume 91.0 Mean Corpuscular Hemoglobin 28.6 L Mean Corpuscular Hemoglobin Concent 31.4 L Red Cell Distribution Width 15.9 H Platelet Count 234 Mean Platelet Volume 9.3 Immature Granulocytes % 0.600 H Neutrophils % 49.1 Lymphocytes % 32.1 Monocytes % 13.3 H Eosinophils % 4.3 Basophils % 0.6 Nucleated Red Blood Cells % 0.0 Immature Granulocytes # 0.030 Neutrophils # 2.5 Lymphocytes # 1.7 Monocytes # 0.7 Eosinophils # 0.2 Basophils # 0.0 Nucleated Red Blood Cells # 0.0 Sodium Level 143 Potassium Level 3.4 L Chloride Level 106 Carbon Dioxide Level 26 Anion Gap 11 Blood Urea Nitrogen 7 Creatinine 1.14 H Est Glomerular Filtrat Rate mL/min 48 L Glucose Level 100 Calcium Level 8.5 Phosphorus Level 3.2 Magnesium Level 1.4 L Exam/Review of Systems Exam Vitals Vital Signs Date Temp Pulse Resp B/P (MAP) Pulse Ox O2 O2 Flow FiO2 Time Delivery Rate 08/12/18 99.5 84 18 126/69 97 Room Air 08:18 (88) 08/11/18 2.0 18:07 Intake and Output 08/11/18 08/11/18 08/12/18 1515:00 23:00 07:00 IntakeIntake Total 2680 ml 1140 ml 925 ml OutputOutput Total 900 ml 1 ml BalanceBalance 1780 ml 1139 ml 925 ml Results Results 24hrs Laboratory Tests Test 08/12/18 06:19 White Blood Count 5.2 Red Blood Count 3.88 L Hemoglobin 11.1 L Hematocrit 35.3 L Mean Corpuscular Volume 91.0 Mean Corpuscular Hemoglobin 28.6 L Mean Corpuscular Hemoglobin Concent 31.4 L Red Cell Distribution Width 15.9 H Platelet Count 234 Mean Platelet Volume 9.3 Immature Granulocytes % 0.600 H Neutrophils % 49.1 Lymphocytes % 32.1 Monocytes % 13.3 H Eosinophils % 4.3 Basophils % 0.6 Nucleated Red Blood Cells % 0.0 Immature Granulocytes # 0.030 Neutrophils # 2.5 Lymphocytes # 1.7 Monocytes # 0.7 Eosinophils # 0.2 Basophils # 0.0 Nucleated Red Blood Cells # 0.0 Sodium Level 143 Potassium Level 3.4 L Chloride Level 106 Carbon Dioxide Level 26 Anion Gap 11 Blood Urea Nitrogen 7 Creatinine 1.14 H Est Glomerular Filtrat Rate mL/min 48 L Glucose Level 100 Calcium Level 8.5 Phosphorus Level 3.2 Magnesium Level 1.4 L Medications Medication Current Medications Dextrose/Sodium Chloride 1,000 ml @ 40 mls/hr Q24H IV Last administered on 08/12/18at 01:36; Admin Dose 75 MLS/HR; Start 08/07/18 at 02:47 IV Flush (NS 3 ml) 3 ml PER PROTOCOL IV ; Start 08/07/18 at 03:00 Ondansetron HCl (Zofran Inj) 4 mg Q6H PRN IV NAUSEA/VOMITING Last administered on 08/09/18 22:52; Admin Dose 4 MG; Start 08/07/18 at 03:00 Morphine Sulfate (morphine) 2 mg Q4H PRN IV .SEVERE PAIN 7-10 Last administered on 08/11/18at 23:20; Admin Dose 2 MG; Start 08/07/18 at 03:00 Famotidine (Pepcid Iv) 20 mg DAILY IV Last administered on 08/12/18 09:18; Admin Dose 20 MG; Start 08/07/18 at 09:00 Albuterol/ Ipratropium (Duoneb) 3 ml Q2H RESP THERAPY PRN HHN SHORTNESS OF BREATH; Start 08/07/18 at 03:00 Lorazepam (Ativan) 1 mg Q4H PRN IV anxiety; Start 08/07/18 at 03:00 Miscellaneous Information Patients own medicat... BID@10,16 XX ; Start 08/07/18 at 16:00 Metoclopramide HCl (Reglan) 5 mg Q6 IV Last administered on 08/12/18at 12:26; Admin Dose 5 MG; Start 3/22/19 at 12:00 ARNOLDO KIM NP Aug 12, 2018 13:09
[2018-08-12 14:38] VITALS: BP 139/68; PULSE 82; RESP 18
[2018-08-12 19:58] VITALS: BP 140/67; PULSE 85; RESP 18
[2018-08-12] MEDS: SACCHAROMYCES BOULARDII 250 MG CAP PO SCH (20:35)
[2018-08-12] MEDS: morphine 2 MG INJ IV PRN (21:57)
[2018-08-13 02:16] VITALS: BP 140/70; PULSE 81; RESP 18
[2018-08-13] MEDS: METOCLOPRAMIDE 10 MG INJ IV SCH ×2 (05:50→12:00)
[2018-08-13] MEDS: morphine 2 MG INJ IV PRN (05:52)
[2018-08-13 08:23] VITALS: BP 137/71; PULSE 87; RESP 16
[2018-08-13] MEDS: SACCHAROMYCES BOULARDII 250 MG CAP PO SCH (09:17)
[2018-08-13] MEDS: FAMOTIDINE 20 MG INJ IV SCH (09:17)
--- NOTE | 2018-08-13 10:56 | PN ---
DATE: 08/13/2018 SUBJECTIVE: The patient is stable. No events overnight. The patient is tolerating p.o. OBJECTIVE: VITAL SIGNS: Blood pressure is 137/71, pulse 87, respirations 16, temperature 98.3. HEENT: Head is normocephalic. NECK: Supple. HEART: Regular rate. LUNGS: Show diminished breath sounds at the base. ABDOMEN: Soft, nontender to palpation. No rebound or guarding. EXTREMITIES: Negative for clubbing, cyanosis. No edema. DERMATOLOGIC: No rashes. MUSCULOSKELETAL: No joint effusion. NEUROLOGIC: No change in exam. MEDICATIONS: Reviewed. LABORATORY DATA: Has been reviewed. ASSESSMENT AND PLAN: 1. Nonoliguric acute kidney injury on top of chronic kidney disease. Etiology of acute kidney injur y is secondary to hemodynamics. Renal function is currently at baseline. Continue to monitor. 2. Electrolyte abnormality, improved. 3. Mineral bone disorder. Monitor calcium and phosphorus levels. 4. Small-bowel obstruction, improving. The patient is tolerating p.o. 5. History of ovarian cancer. 6. Anxiety disorder. 7. Obesity. 8. GI and DVT prophylaxis. Dictated By: SANDY CALL DO NR/NTS Conf#: [id number] DID#: [id number] CC: DERIC HERNÁNDEZ MD;*EndCC*
[2018-08-13] MEDS ORDERED: SACC250C PO (12:59)
--- NOTE | 2018-08-13 13:10 | PDOCDIS ---
Discharge Instructions CONDITION [id number] Patient Condition: [id number] Stable HOME CARE INSTRUCTIONS: [id number] Diet Instructions: [id number] Regular OTHER ORDERS: Other Orders: 1. Resume home medications. 2. Follow a low-cholesterol diet as tolerated. 3. Resume activities as tolerated. 4. Follow-up with your oncologist as scheduled. 5. Please go to the nearest emergency room if you have significant abdominal pain, persistent nausea/vomiting, persistent fevers, or any other unusual signs/symptoms. ARNOLDO KIM NP Aug 13, 2018 13:10
[2018-08-13 15:15] VITALS: BP 151/74; PULSE 80; RESP 19
--- NOTE | 2018-08-13 16:13 | DS ---
Date/Time of Note Date/Time of Note DATE: 08/13/18 TIME: 16:05 Discharge Summary Admission/Discharge Info Admit Date/Time Aug 07, 2018 at 00:41 Discharge Date/Time Aug 13, 2018 at 15:30 Discharge Diagnosis 1. High-grade small bowel obstruction with a transition point along the distal ileum. 2. Chronic kidney disease. 3. History of ovarian cancer. Undergoes chemotherapy at [facility]. 4. Remote history of breast cancer. S/P B/L mastectomy. 5. Anxiety disorder. 6. Obesity. BMI more than 34. Patient Condition: Stable Consults 1. Roly Brownlee DO, Nephrology. 2. Adelina Butcher MD, General Surgery. Procedures CT Abdomen & Pelvis on 08/06/2018 IMPRESSION: High-grade small bowel obstruction with a transition point along the distal ileum in the inferior right pelvis. The small bowel dilatation is increased since the prior examination. The colon is nearly completely collapsed. Subtle nodularity of the liver contour, suggestive of cirrhosis. Correlation with clinical history and/or LFTs is recommended. Atrophic right kidney. Status post appendectomy and hysterectomy. Small Bowel Follow Through on 08/10/2018 IMPRESSION: 1. Small bowel obstruction is currently excluded with a small bowel transit time of approximately 60 minutes. Hx of Present Illness This is a 63-year-old female with comorbidities including chronic kidney disease, ovarian cancer currently getting chemotherapy at [facility], obesity, and recurrent small bowel obstructions. The patient came to the emergency room with chief complaint of abdominal pain with CT scan showing high- grade small bowel obstruction with a transition point along the distal lumen in the inferior right pelvis. Therefore, the patient was admitted to inpatient setting for further treatment and evaluation. Hospital Course The patient was started on NGT decompression. A general surgery consult was obtained. The patient responded slowly to the therapy with NGT decompression. The patient was evaluated by general surgery and recommended conservative management. The patient's small bowel follow-through from 08/10/2018 showed no evidence of any small bowel obstruction. Therefore, the patient was started on a clear liquid diet from 08/11/2018. The patient's NGT was clamped and discontinued on 08/11/2018. The patient was a started on a solid diet on 08/12/2018. The patient was able to tolerate a diet with advancement in the diet without any significant gastrointestinal symptoms. The patient had some episodes of diarrhea. The patient was therefore started on Florastor. The angelica ent has prior history of small bowel obstruction and the patient was recently discharged from [facility] following a similar episode of small bowel obstruction. Therefore, the patient was managed very conservatively with advancing her diet gradually. The patient has chronic kidney disease. The patient was noted to have acute on chronic kidney injury. The patient was being followed by nephrology. The patient's BUN and creatinine improved throughout the hospital course. The patient has a history of ovarian cancer and the patient undergoes chemotherapy at [facility]. The patient has a remote history of breast cancer and the patient is status post bilateral mastectomy. The patient has underlying anxiety disorder. The patient was maintained on anxiolytics and mood stabilizers. The patient had positive urinalysis. Therefore, the patient was started on empiric antimicrobials. However, the patient's urine cultures were inconclusive. Therefore, the patient's antibiotics were discontinued. The patient is obese with a BMI of more than 34 kg/m. The patient was advised on weight reduction. The patient had a stable, but prolonged hospital course because of the slow improvement in the patient's underlying small bowel obstruction. Discharge Instructions 1. Resume home medications. 2. Follow a low-cholesterol diet as tolerated. 3. Resume activities as tolerated. 4. Follow-up with your oncologist as scheduled. 5. Please go to the nearest emergency room if you have significant abdominal pain, persistent nausea/vomiting, persistent fevers, or any other unusual signs/symptoms. The patient verbalized understanding of her discharge instructions. At this time I would like to thank all the consultants for seeing the patient and providing clinical recommendations. The patient was seen in collaboration with Dr. Rosa. Home Meds Active Scripts Saccharomyces Boulardii* (Florastor*) 250 Mg Cap, 250 MG PO BID, #14 CAP Prov:ARNOLDO KIM SENIOR HADOOP DEVELOPER 08/13/18 Reported Medications Trazodone Hcl* (Trazodone Hcl*) Unknown Strength Tablet, 1 TAB PO QHS, #30 TAB 07/28/18 Escitalopram Oxalate* (Lexapro*) 20 Mg Tablet, 20 MG PO DAILY, #30 TAB 07/28/18 Aripiprazole* (Abilify*) 10 Mg Tablet, 10 MG PO DAILY, #30 TAB 07/28/18 Primary Care Provider Not On Staff Doctor Time spent on discharge: > 30 minutes Pending Labs Laboratory Tests Test 08/13/18 04:44 White Blood Count 4.1 10^3/ul (4.8-10.8) Red Blood Count 3.83 10^6/ul (4.20-5.40) Hemoglobin 10.8 g/dl (12.0-16.0) Hematocrit 34.6 % (37.0-47.0) Mean Corpuscular Volume 90.3 fl (82.0-101.0) Mean Corpuscular Hemoglobin 28.2 pg (29.0-33.0) Mean Corpuscular Hemoglobin Concent 31.2 g/dl (32.0-37.0) Red Cell Distribution Width 16.1 % (11.5-14.5) Platelet Count 252 10^3/UL (140-415) Mean Platelet Volume 9.9 fl (7.4-10.4) Immature Granulocytes % 0.500 % (0.001-0.429) Neutrophils % 45.0 % (39.0-77.0) Lymphocytes % 35.8 % (15.0-51.0) Monocytes % 13.6 % (0.0-11.0) Eosinophils % 3.9 % (0.0-7.0) Basophils % 1.2 % (0.0-2.0) Nucleated Red Blood Cells % 0.0 /100WBC (0.0-0.0) Immature Granulocytes # 0.020 10^3/ul (0.0-0.031) Neutrophils # 1.9 10^3/ul (1.6-7.5) Lymphocytes # 1.5 10^3/ul (0.8-2.9) Monocytes # 0.6 10^3/ul (0.3-0.9) Eosinophils # 0.2 10^3/ul (0.0-0.5) Basophils # 0.1 10^3/ul (0.0-0.1) Nucleated Red Blood Cells # 0.0 10^3/ul (0.0-0.0) Sodium Level 143 mmol/L (135-144) Potassium Level 3.8 mmol/L (3.5-5.1) Chloride Level 108 mmol/L (97-110) Carbon Dioxide Level 25 mmol/L (21-31) Anion Gap 10 (5-13) Blood Urea Nitrogen 8 mg/dl (7-20) Creatinine 1.08 mg/dl (0.44-1.00) Est Glomerular Filtrat Rate mL/min 51 mL/min (>60) Glucose Level 96 mg/dl (70-220) Calcium Level 9.0 mg/dl (8.4-10.2) Phosphorus Level 3.2 mg/dl (2.5-4.9) Magnesium Level 1.9 mg/dl (1.7-2.5) ARNOLDO KIM NP Aug 13, 2018 16:13
== END 2018-08-13 15:30 | disposition home or self-care (01) | DRG 389 ==
LOC: E/R 19:42 → 2NE 08-07 00:41
PROVIDERS: ADMIT Internal Medicine; ATTEND Internal Medicine
DX: K56.609 Unspecified intestinal obstruction, unspecified as to partial versus complete obstruction (principal); N17.9 Acute kidney failure, unspecified; E87.0 Hyperosmolality and hypernatremia; C56.9 Malignant neoplasm of unspecified ovary; I12.9 Hypertensive chronic kidney disease with stage 1 through stage 4 chronic kidney disease, or unspecified chronic kidney disease; N18.9 Chronic kidney disease, unspecified; Z85.3 Personal history of malignant neoplasm of breast; E66.9 Obesity, unspecified; Z68.34 Body mass index [BMI] 34.0-34.9, adult; F41.9 Anxiety disorder, unspecified; E83.9 Disorder of mineral metabolism, unspecified; E87.6 Hypokalemia; R82.90 Unspecified abnormal findings in urine
CPT/HCPCS: 36415; 74176; 74250; 76775; 80048; 80053; 81001; 81003; 82043; 83690; 83735; 84100; 84155; 84300; 85025; 87086; 90686; 96374; 96375; J0744; J2270; J2405; J2765; J3475; J3480; J7040; J7042; Q9967

== ENCOUNTER 2019-01-12 21:39 | Inpatient (IN) | payer OTHER ==
[~2019-01-12] VITALS: Ht 162.6 cm; Wt 80.0 kg
[~2019-01-12 21:39] MED LIST changes: +SACC250C PO
[2019-01-12 21:42] VITALS: Ht 162.6 cm; Wt 80.0 kg
[2019-01-12] MEDS ORDERED: LIDOCAINE 1% (MDV) 20 ML INJ SC ONE (22:30)
[2019-01-13] MEDS ORDERED: ACETAMINOPHEN 325 MG TAB PO ONE
[2019-01-13] MEDS ORDERED: SOD CHLORIDE 0.9% 0 ML IV ONE (00:49)
[2019-01-13] MEDS ORDERED: ONDANSETRON 4 MG INJ IV PRN (01:30)
[2019-01-13] MEDS ORDERED: ACETAMINOPHEN 325 MG TAB PO PRN ×2 (01:30→02:00)
[2019-01-13] MEDS ORDERED: SOD CHLORIDE 0.9% 1,000 ML IV SCH ×2 (01:36→04:30)
[2019-01-13] MEDS ORDERED: BISACODYL (EC) 5 MG TAB PO PRN (02:00)
[2019-01-13] MEDS ORDERED: DOCUSATE SODIUM 100 MG CAP PO PRN (02:00)
[2019-01-13] MEDS ORDERED: DIPHTH/TET/ACEL PERTUSS (ADULT) 0.5 ML VIAL IM* ONE (02:00)
[2019-01-13] MEDS ORDERED: NACL 0.9% 3 ML SYG IV SCH (02:00)
[2019-01-13 04:00] VITALS: BP 140/67; PULSE 97; RESP 20
[2019-01-13] MEDS ORDERED: PENDING SANTYL ORDER FOR WOUND CARE XX PRN (06:00)
[2019-01-13 07:55] VITALS: BP 131/63; PULSE 102; RESP 24
[2019-01-13] MEDS ORDERED: SOD CHLORIDE 0.9% 100 ML ONE (07:57)
[2019-01-13] MEDS ORDERED: IOHEXOL 300MG/ML 150 ML BTL ONE (07:57)
[2019-01-13] MEDS: ESCITALOPRAM 10 MG TAB PO SCH (08:30)
[2019-01-13] MEDS: ARIPIPRAZOLE 10 MG TAB PO SCH (08:30)
[2019-01-13] MEDS: SACCHAROMYCES BOULARDII 250 MG CAP PO SCH ×2 (08:31→20:57)
[2019-01-13] MEDS ORDERED: FUROSEMIDE 40 MG INJ IV ONE (11:30)
[2019-01-13 11:31] VITALS: BP 119/60; PULSE 93; RESP 24
[2019-01-13 16:00] VITALS: BP 117/60; PULSE 92; RESP 20
[2019-01-13] MEDS: HYDROCODONE/APAP (5/325) TAB PO PRN (17:47)
[2019-01-13 19:10] VITALS: BP 120/60; PULSE 94; RESP 18
[2019-01-13] MEDS: traZODone 50 MG TAB PO SCH (20:57)
[2019-01-14] VITALS (7 sets, daily range): BP systolic 104–130; BP diastolic 55–61; PULSE 86–95; RESP 16–20
[2019-01-14] MEDS: SACCHAROMYCES BOULARDII 250 MG CAP PO SCH ×2 (08:43→20:55)
[2019-01-14] MEDS: ARIPIPRAZOLE 10 MG TAB PO SCH (08:43)
[2019-01-14] MEDS: ESCITALOPRAM 10 MG TAB PO SCH (08:43)
[2019-01-14] MEDS ORDERED: FUROSEMIDE 20 MG INJ IV ONE (11:00)
[2019-01-14] MEDS: CIPROFLOXACIN 200 MG/D5W IVPB 100 ML IVPB SCH ×2 (12:16→20:55)
[2019-01-14] MEDS: SOD FERRIC GLUC COMPLX 125 MG in SOD CHLORIDE 0.9% 100 ML IVPB SCH (12:16)
[2019-01-14] MEDS ORDERED: MAGNESIUM SULFATE 1 GM/D5W 100 ML IVPB ONE (13:00)
[2019-01-14] MEDS ORDERED: SOD CHLORIDE 0.9% 250 ML IV* ONE (13:04)
[2019-01-14] MEDS: ACCU-CHEK XX SCH ×3 (13:23→20:55)
[2019-01-14] MEDS: metroNIDAZOLE 500 MG/NS (PMX) 100 ML IVPB SCH ×2 (14:51→22:35)
[2019-01-14] MEDS: TPN 1,000 ML IV SCH (17:23)
[2019-01-14] MEDS: traZODone 50 MG TAB PO SCH (20:55)
[2019-01-14] MEDS: ONDANSETRON 4 MG INJ IV PRN (22:58)
[2019-01-15] MEDS: ACCU-CHEK XX SCH ×6 (01:00→21:00)
[2019-01-15 03:32] VITALS: BP 115/56; PULSE 92; RESP 18
[2019-01-15] MEDS: metroNIDAZOLE 500 MG/NS (PMX) 100 ML IVPB SCH ×3 (05:32→22:31)
[2019-01-15 07:30] VITALS: BP 117/61; PULSE 88; RESP 17
[2019-01-15] MEDS: ESCITALOPRAM 10 MG TAB PO SCH (09:24)
[2019-01-15] MEDS: CIPROFLOXACIN 200 MG/D5W IVPB 100 ML IVPB SCH ×2 (09:24→21:19)
[2019-01-15] MEDS: SACCHAROMYCES BOULARDII 250 MG CAP PO SCH ×2 (09:24→21:20)
[2019-01-15] MEDS: ARIPIPRAZOLE 10 MG TAB PO SCH (09:24)
[2019-01-15] MEDS ORDERED: SOD CHLORIDE 0.9% 250 ML IV* ONE (10:34)
[2019-01-15] MEDS ORDERED: FUROSEMIDE 40 MG INJ IV ONE (11:00)
[2019-01-15 11:36] VITALS: BP 129/65; PULSE 91; RESP 18
[2019-01-15] MEDS: TPN 1,000 ML IV SCH (12:09)
[2019-01-15] MEDS: SOD FERRIC GLUC COMPLX 125 MG in SOD CHLORIDE 0.9% 100 ML IVPB SCH (13:28)
[2019-01-15 15:04] VITALS: BP 121/61; PULSE 91; RESP 18
[2019-01-15 19:57] VITALS: BP 130/66; PULSE 88; RESP 18
[2019-01-15] MEDS: traZODone 50 MG TAB PO SCH (21:20)
[2019-01-16] VITALS (7 sets, daily range): BP systolic 106–136; BP diastolic 60–80; PULSE 80–102; RESP 17–20
[2019-01-16] MEDS: ACCU-CHEK XX SCH ×6 (01:00→21:00)
[2019-01-16] MEDS: metroNIDAZOLE 500 MG/NS (PMX) 100 ML IVPB SCH ×3 (06:54→22:54)
[2019-01-16] MEDS: TPN 1,000 ML IV SCH ×2 (06:54→23:21)
[2019-01-16] MEDS: ESCITALOPRAM 10 MG TAB PO SCH (08:42)
[2019-01-16] MEDS: SACCHAROMYCES BOULARDII 250 MG CAP PO SCH ×2 (08:42→21:43)
[2019-01-16] MEDS: CIPROFLOXACIN 200 MG/D5W IVPB 100 ML IVPB SCH ×2 (08:42→21:38)
[2019-01-16] MEDS: ARIPIPRAZOLE 10 MG TAB PO SCH (08:42)
[2019-01-16] MEDS ORDERED: FAT EMULSION 20% 250 ML IV SCH (09:00)
[2019-01-16] MEDS: HYDROCODONE/APAP (5/325) TAB PO PRN ×2 (09:01→18:01)
[2019-01-16] MEDS: SOD FERRIC GLUC COMPLX 125 MG in SOD CHLORIDE 0.9% 100 ML IVPB SCH (13:02)
[2019-01-16] MEDS ORDERED: EPOETIN ALFA-EPBX (NON-ESRD 10,000 UNIT/ML VIAL SC SCH (17:00)
[2019-01-16] MEDS: traZODone 50 MG TAB PO SCH (21:43)
[2019-01-17] MEDS: ACCU-CHEK XX SCH ×5 (01:00→17:00)
[2019-01-17 04:02] VITALS: BP 125/65; PULSE 96; RESP 20
[2019-01-17] MEDS: metroNIDAZOLE 500 MG/NS (PMX) 100 ML IVPB SCH ×2 (05:45→13:38)
[2019-01-17 07:32] VITALS: BP 116/71; PULSE 90; RESP 17
[2019-01-17] MEDS: SACCHAROMYCES BOULARDII 250 MG CAP PO SCH (09:45)
[2019-01-17] MEDS: ARIPIPRAZOLE 10 MG TAB PO SCH (09:45)
[2019-01-17] MEDS: ESCITALOPRAM 10 MG TAB PO SCH (09:45)
[2019-01-17] MEDS: HYDROCODONE/APAP (5/325) TAB PO PRN ×3 (09:47→18:48)
[2019-01-17] MEDS: CIPROFLOXACIN 200 MG/D5W IVPB 100 ML IVPB SCH (09:51)
[2019-01-17] MEDS: ONDANSETRON 4 MG INJ IV PRN (10:09)
[2019-01-17 11:30] VITALS: BP 128/63; PULSE 88; RESP 17
[2019-01-17 14:56] VITALS: BP 115/56; PULSE 92; RESP 16
[2019-01-17] MEDS: TPN 1,000 ML IV SCH (15:10)
[2019-01-17] MEDS ORDERED: FAT EMULSION 20% 250 ML IV SCH (16:00)
[2019-01-17 19:52] VITALS: BP 134/71; PULSE 91; RESP 18
[2019-01-17] MEDS ORDERED: GUAIFENESIN/DM 5ML CUP PO ONE (20:00)
== END 2019-01-17 21:10 | DRG 812 ==
LOC: E/R 21:39 → TEL 01-13 01:21
PROVIDERS: ADMIT Family Medicine; ATTEND Family Medicine
PROC: 0HQ1XZZ Repair Face Skin, External Approach (ICD-10-PCS; principal; 2019-01-12)
PROC: 30233N1 Transfusion of Nonautologous Red Blood Cells into Peripheral Vein, Percutaneous Approach (ICD-10-PCS; 2019-01-13)
DX: D64.9 Anemia, unspecified (principal); C79.60 Secondary malignant neoplasm of unspecified ovary; R18.8 Other ascites; S01.81XA Laceration without foreign body of other part of head, initial encounter; D63.8 Anemia in other chronic diseases classified elsewhere; K52.9 Noninfective gastroenteritis and colitis, unspecified; S09.90XA Unspecified injury of head, initial encounter; W18.12XA Fall from or off toilet with subsequent striking against object, initial encounter; Y92.192 Bathroom in other specified residential institution as the place of occurrence of the external cause; Z85.3 Personal history of malignant neoplasm of breast; F39 Unspecified mood [affective] disorder; F31.9 Bipolar disorder, unspecified; R60.9 Edema, unspecified
CPT/HCPCS: 36430; 70450; 72125; 74178; 80048; 80053; 81001; 81003; 82270; 82607; 82668; 82728; 82746; 82962; 83036; 83540; 83735; 84100; 84134; 84478; 85025; 85610; 86850; 86900; 86901; 86920; 87081; 93005; J0400; J0744; J1940; J2405; J2916; J3475; J7030; J7040; P9016; Q5106; Q9967